=== PATIENT | male | born 1975 | race Caucasian/White ===

== ENCOUNTER 2018-07-03 10:56 | Day surgery (SDC) | payer OTHER, SELFPAY ==
[2018-07-03 11:38] VITALS: BP 130/81; PULSE 67; RESP 18; O2SAT 97; BMI 29.5
[2018-07-03 12:19] VITALS: BP 148/99; PULSE 71; RESP 18; O2SAT 98
[2018-07-03 12:20] VITALS: BP 147/89; PULSE 69; RESP 18; O2SAT 98
--- NOTE | 2018-07-03 12:26 | P.PCN_ITS ---
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 He currently has an intrathecal Dilaudid pain pump in place going at 0.15 mg/day. He is doing very well with his intrathecal pain pump. He does have an antalgic gait. Motor strength of the lower extremities is 5/5. There is no gross sensory deficit. He has no side effects currently. Overall his mari n is well controlled and he is much more functional. Seth and urine drug screen are all appropriate. We will refill his pump and reprogrammed him to a 20 mL reservoir volume. Procedure Details:: Analysis and reprogramming with refill of intrathecal pain pump informed consent was obtained and the risks and benefits of the procedure was explained to the patient. The patient was taken to the procedure room. The pump was interrogated. The area over the pump was prepped using ChloraPrep. The pump was accessed with a 22-gauge needle. Approximately 8 mL's of the i ntrathecal solution was withdrawn and discarded. The pump was then refilled with 20 mL's of intrathecal Dilaudid 2 mg per ml. The pump was interrogated and the infusion was continued at 0.15 mg/day. The patient tolerated the procedure well with no complication. Plan and Disposition:: We will follow-up with him in 2 weeks. Will reevaluate symptoms at that time.
[2018-07-03 12:34] VITALS: BP 148/99; PULSE 69; RESP 18
--- NOTE | 2018-09-07 11:51 | PC.PHONENOTE ---
called in Rx for Tramadol HCL 50mg TID with 5 refills and Gabapentin 300mg, 3 caps TID with 5 refills to [facility]
--- NOTE | 2018-11-03 09:15 | PC.NURSE ---
tizanidine 4mg bid with 2 refills called into [facility], per provider order
== END 2018-07-03 12:35 | disposition home or self-care (01) ==
LOC: SC.PAINP 10:57
PROVIDERS: PCP Family Medicine; Visit Provider Anesthesiology
DX: M51.16 Intervertebral disc disorders with radiculopathy, lumbar region (principal); M96.1 Postlaminectomy syndrome, not elsewhere classified
CPT/HCPCS: 95991

== ENCOUNTER → 2019-06-20 09:54 | Outpatient (CLI) | payer OTHER, SELFPAY ==
[2019-06-22 08:48] LABS: Covid-19 Nasal PCR Sendout UK Not Detected
== END ==
PROVIDERS: PCP Family Medicine; Visit Provider Anesthesiology
DX: Z03.818 Encounter for observation for suspected exposure to other biological agents ruled out (principal)
CPT/HCPCS: U0003

== ENCOUNTER 2019-06-22 13:35 | Day surgery (SDC) | payer OTHER, SELFPAY ==
[2019-06-22 13:48] VITALS: BP 158/102; PULSE 66; RESP 18; O2SAT 100; BMI 29.5
[2019-06-22 14:04] VITALS: BP 153/108; PULSE 61; RESP 18; O2SAT 97
[2019-06-22 14:08] VITALS: BP 145/89; PULSE 65; RESP 20; O2SAT 99
[2019-06-22 14:10] VITALS: BP 149/85; PULSE 65; RESP 20; O2SAT 99
--- NOTE | 2019-06-22 14:17 | HMH.PMPROC ---
- Procedure Date: 06/22/19 Time: 14:17 Anesthesiologist:: Kimberley Reilly APRN Complications:: None Pre-procedure Diagnosis:: Degenerative disc disease lumbar spine with lumbar radiculopathy and postlaminectomy of lumbar spine Post-procedure Diagnosis:: Same Indications for Procedure:: Patient is a pleasant 43-year-old white male who presents today for intrathecal pain pump refill and reprogram. He is doing well his Dilaudid pain pump at 0.15 mg/day he would like a slight increase in his medication. Patient's Seth #[id number] reviewed and appropriate. He is on tramadol 50 mg 1 p.o. 3 times daily along with gabapentin 800 mg 1 p.o. 3 times daily. He denies side effects to this medication. His morphine equivalent is 15. He states that it helped his pain significantly he rates his pain a 1 out of 10 today. 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 The patient was taken to the procedure room where noninvasive monitoring was placed including noninvasive blood pressure cuff and pulse oximeter. Patient's pump was interrogated. The area over the pump was cleansed with chlorhexidine as a cleansing solution. In sterile fashion the pump was accessed with a 22-gauge needle. Approximately 6 mL's were removed of the pump solution and discarded appropriately. The pump was then refilled with 20 mL's of intrathecal Dilaudid 2 mg/mL. The needle was withdrawn and a bandage was placed over the puncture site. The infusion rate was reprogrammed to 0.175 mg/day. The patient tolerated the procedure well. Plan and Disposition:: I will follow-up with the patient at his next intrathecal pain pump refill and reprogram he has been instructed to call the office if he has any issues prior to his next appointment. Dr. Hyatt has reviewed this note and agrees with this plan of care. This note was dictated using voice recognition software and may contain errors or omissions
--- NOTE | 2019-06-22 14:19 | PC.NURSE ---
Discussed elevated BP with pt, said he had a cuff at home. RN instructed pt to check BP a little later today to see if goes down and if not to contact his primary clinician. Verbalized understanding.
--- NOTE | 2019-08-18 15:48 | PC.NURSE ---
Addendum entered by Jessee Martinez RN 08/18/19 16:11: EDIT: GABAPENTIN 800MG TID , NOT GABAPENTIN 300 Original Note: GABAPENTIN 300MG, 3 CAPSULES TID, TRAMADOL 50MG TID, AND TIZANIDINE 4MG TID WITH TWO REFILLS CALLED INTO [facility] PER PROVIDER ORDER
== END 2019-06-22 14:22 | disposition home or self-care (01) ==
LOC: SC.PAINP 13:35
PROVIDERS: PCP Family Medicine; Visit Provider Clinical Nurse Specialist Family Health
DX: M51.16 Intervertebral disc disorders with radiculopathy, lumbar region (principal); M96.1 Postlaminectomy syndrome, not elsewhere classified; Z88.1 Allergy status to other antibiotic agents
CPT/HCPCS: 62370

== ENCOUNTER 2019-11-29 13:47 | Day surgery (SDC) | payer OTHER, SELFPAY ==
[2019-11-29 14:03] VITALS: BP 153/96; BP 157/112; PULSE 77; RESP 18; TEMP 36.4; O2SAT 97; BMI 30.8
[2019-11-29 14:20] VITALS: BP 177/84; PULSE 82; RESP 18
[2019-11-29 14:21] VITALS: BP 172/89; PULSE 77; RESP 18; O2SAT 98
--- NOTE | 2019-11-29 14:28 | P.PCN_ITS ---
- Procedure Date: 11/29/19 Time: 14:28 Anesthesiologist:: Kimberley Reilly APRN Complications:: None Pre-procedure Diagnosis:: Disc disease lumbar spine lumbar radiculopathy and postlaminectomy syndrome lumbar spine Post-procedure Diagnosis:: Same Indications for Procedure:: Patient is a very pleasant 43-year-old white male who presents today for intrathecal pain pump refill and reprogram. He is doing well on his Dilaudid intrathecal pain pump going at 0.175 mg/day. He denies any need for changes he denies side effects. He is on tramadol 50 mg 1 tab p.o. 3 times daily and gabap entin 800 mg 1 p.o. 3 times daily. He is morphine equivalent is currently 15. Seth and drug screens appropriate. 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 The patient was taken to the procedure room where noninvasive monitoring was placed including noninvasive blood pressure cuff and pulse oximeter. Patient's pump was interrogated. The area over the pump was cleansed with chlorhexidine as a cleansing solution. In sterile fashion the pump was accessed with a 22-gauge needle. Approximately 2.5 mL's were removed of the pump solution and discarded appropriately. The pump was then refilled with 20 mL's of Dilaudid 2 mg/mL. The needle was withdrawn and a bandage was placed over the puncture site. The infusion rate was reprogrammed to continue at 0.175 mg/day. The patient tolerated the procedure well. Plan and Disposition:: See the patient back at his next intrathecal pain pump refill and reprogram he has been instructed to call the office if he has any issues prior to his next appointment. Dr. Hyatt has reviewed this note and agrees with this plan of care. This note was dictated using voice recognition software and may contain errors or omissions
[2019-11-29 14:45] VITALS: BP 151/99; PULSE 68; RESP 18; O2SAT 97
== END 2019-11-29 14:47 | disposition home or self-care (01) ==
LOC: SC.PAINP 13:49
PROVIDERS: PCP Family Medicine; Visit Provider Clinical Nurse Specialist Family Health
DX: M51.16 Intervertebral disc disorders with radiculopathy, lumbar region (principal); M96.1 Postlaminectomy syndrome, not elsewhere classified
CPT/HCPCS: 95991

== ENCOUNTER 2020-04-07 08:32 | Day surgery (SDC) | payer OTHER, SELFPAY ==
[2020-04-07 09:00] VITALS: BP 128/88; PULSE 64; RESP 18; TEMP 36; O2SAT 100; BMI 43.9
[2020-04-07 09:23] VITALS: BP 138/85; PULSE 85; RESP 18
[2020-04-07 09:24] VITALS: BP 150/87; PULSE 68; RESP 18; O2SAT 98
--- NOTE | 2020-04-07 09:34 | HMH.PMPROC ---
- Procedure Date: 04/07/20 Time: 09:35 Anesthesiologist:: Jaden Hyatt MD Complications:: None Pre-procedure Diagnosis:: Degenerative disc disease of lumbar spine with postlaminectomy syndrome lumbar spine Post-procedure Diagnosis:: Same Indications for Procedure:: This patient is a pleasant 43-year-old white male who we are treating for low back pain with lumbar radiculopathy symptoms and postlaminectomy syndrome lumbar spine. Patient is doing well on his Dilaudid intrathecal pain pump. He is currently going at 0.175 mg/day. He does not need any changes today. We will refill his pump today. Seth and urine drug screens have been reviewed and are appropriate. He does have an antalgic gait. Motor strength of the lower extremities is 5/5. There is no gross sensory deficit. We will refill his pump today and continue him at 0.175 mg/day of intrathecal Dilaudid. Procedure Details:: Pain pump refill Informed consent was obtained and the risks and benefits of the procedure was explained to the patient. The patient was taken to the procedure room. The pump was interrogated. The area over the pump was prepped using ChloraPrep. The pump was accessed with a 22-gauge needle. Approximately 6 mL's of the intrathecal solution was withdrawn and discarded. The pump was then refilled with 20 mL's of intrathecal Dilaudid 2 mg/mL. The pump was interrogated and the infusion was continued at 0.175 mg/day. The patient tolerated the procedure well with no complication. Plan and Disposition:: We will follow-up with him at his next pump refill. If is any problems or questions he is to call us back in the pain clinic.
[2020-04-07 09:40] VITALS: BP 142/93; PULSE 61; RESP 20; O2SAT 99
--- NOTE | 2020-07-07 16:58 | PC.NURSE ---
called in rx for tizanidine 4mg TID with 2 refills to [facility] [place] per provider order.
== END 2020-04-07 09:41 | disposition home or self-care (01) ==
LOC: SC.PAINP 08:36
PROVIDERS: PCP Family Medicine; Visit Provider Anesthesiology
DX: M51.16 Intervertebral disc disorders with radiculopathy, lumbar region (principal); M96.1 Postlaminectomy syndrome, not elsewhere classified; I10 Essential (primary) hypertension; Z88.0 Allergy status to penicillin; Z90.49 Acquired absence of other specified parts of digestive tract; Z45.1 Encounter for adjustment and management of infusion pump; Z79.899 Other long term (current) drug therapy
CPT/HCPCS: 95991

== ENCOUNTER 2020-07-24 14:48 | Day surgery (SDC) | payer OTHER, SELFPAY ==
[2020-07-24 14:52] VITALS: BP 157/89; PULSE 79; RESP 18; TEMP 36.4; O2SAT 98; BMI 30.8
[2020-07-24 15:18] VITALS: BP 139/86; PULSE 77; RESP 18; O2SAT 100
[2020-07-24 15:19] VITALS: BP 137/91; PULSE 77; RESP 18; O2SAT 98
[2020-07-24 15:30] VITALS: BP 153/99; PULSE 72; RESP 20; O2SAT 98
--- NOTE | 2020-07-28 07:19 | HMH.PMPROC ---
- Procedure Date: 07/24/20 Time: 13:00 Anesthesiologist:: Kim Maciel APRN Complications:: None Pre-procedure Diagnosis:: Degenerative disc disease lumbar spine with lumbar radiculopathy symptoms, chronic back pain Post-procedure Diagnosis:: Same Indications for Procedure:: Patient is a 44-year-old white male who presents today for intrathecal pain pump refill and reprogram. He has been treated for degenerative disc disease lumbar spine with lumbar radiculopathy symptoms and postlaminectomy lumbar spine. He is currently on intrathecal therapy of Dilaudid at 0.175 mg/day and denies any side effects. His Seth and drug screens have been appropriate. His Seth #[id number] has been reviewed and is appropriate. Drug screen is appropriate. 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 The patient was taken to the procedure room where noninvasive monitoring was placed including noninvasive blood pressure cuff and pulse oximeter. Patient's pump was interrogated. The area over the pump was cleansed with chlorhexidine as a cleansing solution. In sterile fashion the pump was accessed with a 22-gauge needle. Approximately 5 mL mls of the pump solution was removed and discarded appropriately. The pump was then refilled with 20 mL's of Dilaudid 2 mg per male []. The needle was withdrawn and a bandage was placed over the puncture site. The infusion rate was reprogrammed at Dilaudid 0.175 mg/day []. The patient tolerated well with no complication. Plan and Disposition:: We will see the patient back in the clinic at his next intrathecal refill. Patient has been instructed to contact the clinic with any concerns before the next appointment. Dr. Hyatt has reviewed this note and agrees with this plan of care. This note was dictated using voice recognition software and make contain errors or omissions.
== END 2020-07-24 15:30 | disposition home or self-care (01) ==
LOC: SC.PAINP 14:51
PROVIDERS: PCP Family Medicine; Visit Provider Clinical Nurse Specialist Family Health
DX: M51.16 Intervertebral disc disorders with radiculopathy, lumbar region (principal); G89.29 Other chronic pain; Z45.1 Encounter for adjustment and management of infusion pump
CPT/HCPCS: 95991

== ENCOUNTER 2020-11-20 14:49 | Day surgery (SDC) | payer OTHER, SELFPAY ==
[2020-11-20 14:51] VITALS: BP 153/83; PULSE 85; RESP 18; TEMP 37.1; O2SAT 98; BMI 30.8
[2020-11-20 15:24] VITALS: BP 154/88; PULSE 78; RESP 18; O2SAT 96
[2020-11-20 15:26] VITALS: BP 154/88; PULSE 79; RESP 18; O2SAT 95
[2020-11-20 15:31] VITALS: BP 169/87; PULSE 71; RESP 18; TEMP 37.1; O2SAT 98
--- NOTE | 2020-11-20 15:31 | HMH.PMPROC ---
- Procedure Date: 11/20/20 Time: 15:31 Anesthesiologist:: Kim Maciel APRN Complications:: None Pre-procedure Diagnosis:: Degenerative disc disease lumbar spine with lumbar radiculopathy symptoms, chronic back pain Post-procedure Diagnosis:: Same Indications for Procedure:: Patient is a 44-year-old white male who presents today for intrathecal pain pump refill and reprogram. Patient is currently on Dilaudid at 0.175 mg/day. He denies any side effects to the medicine. He says the medication regimen is working well for him. He is also managed with oral medications of gabapentin 800 mg 1 tablet p.o. 4 times daily and tramadol 50 mg 1 tablet p.o. 4 times daily. [facility] #[id number] has been reviewed and is appropriate. Drug screen is appropriate. Rates his pain is 6 out of 10. Physical exam General: Alert and oriented x3, no acute distress, pleasant and cooperative Lungs: Respirations even and unlabored, symmetrical chest expansion Eyes: PERRL Musculoskeletal: Flexion and extension of lumbar [spine] somewhat guarded secondary to pain, [antalgic gait noted] Neurological: Speech clear, no gross sensory deficit Procedure Details:: Informed consent was obtained and the risk and benefits of the procedure were explained to the patient. The patient was taken to the procedure room where noninvasive monitoring was placed including noninvasive blood pressure cuff and pulse oximeter. Patient's pump was interrogated. The area over the pump was cleansed with chlorhexidine as a cleansing solution. In sterile fashion the pump was accessed with a 22-gauge needle. Approximately 6.5 mls of the pump solution was removed and discarded appropriately. The pump was then refilled with 20 mL's of Dilaudid 2 mg/mL. The needle was withdrawn and a bandage was placed over the puncture site. The infusion rate was reprogrammed at continued at Dilaudid at 0.175 mg/day. The patient tolerated well with no complication. Plan and Disposition:: We will refill the patient's gabapentin 800 mg 1 tablet p.o. 4 times daily, tramadol 50 mg 1 tablet p.o. 4 times daily. We will give him 2 refills on the medication so that he is able to return in 3 months for an intrathecal pump refill and medication refill. Risks and benefits of the medication have been explained in detail to the patient. The patient does understand the risks dependence on the medication when given over a prolonged period. Patient has been advised of risks of oversedation with the prescribed medication. Narcan has been offered to the paitent in the event of oversedation. Patient has been advised that a family member should also be educated regarding administration of Narcan. The patient has been advised to consult with his/her primary care provider and pharmacist regarding drug-drug interaction of medications currently prescribed. Patient has been prescribed a controlled substance after being counseled on the medication, medication safety, and possible side effects. KAJAL report has been obtained and reviewed prior to prescription and found to be appropriate. Opioid contract was reviewed and signed by the patient, and that they have agreed to all of the terms set forth by our compliance program. Patient has been instructed to contact the clinic with any concerns before the next appointment. Dr. Hyatt has reviewed this note and agrees with this plan of care. This note was dictated using voice recognition software and make contain errors or omissions.
== END 2020-11-20 15:35 | disposition home or self-care (01) ==
LOC: SC.PAINP 14:49
PROVIDERS: PCP Family Medicine; Visit Provider Clinical Nurse Specialist Family Health
DX: M51.16 Intervertebral disc disorders with radiculopathy, lumbar region (principal); G89.29 Other chronic pain
CPT/HCPCS: 95991

== ENCOUNTER 2021-04-02 13:06 | Day surgery (SDC) | payer OTHER, SELFPAY ==
[2021-04-02 13:15] VITALS: BP 160/90; PULSE 65; RESP 20; TEMP 37.1; BMI 30.8
[2021-04-02 13:16] VITALS: BP 154/92; PULSE 64; RESP 18; O2SAT 94
[2021-04-02 13:41] VITALS: BP 159/95; PULSE 65; RESP 18; O2SAT 94
[2021-04-02 13:55] VITALS: BP 150/95; PULSE 64; RESP 20; O2SAT 97
--- NOTE | 2021-04-02 14:32 | P.PCN_ITS ---
- Procedure Date: 04/02/21 Time: 14:32 Anesthesiologist:: Ne South MD Complications:: None Pre-procedure Diagnosis:: Degenerative disease lumbar spine with lumbar radiculopathy Post-procedure Diagnosis:: Same Indications for Procedure:: Patient is a very pleasant 45-year-old white male who presents today for intrathecal refill and reprogram. He is currently on Dilaudid 2 mg/mL on constant flow and PTC at 0.175 mg/day. He states that his current pain symptoms are adequately managed with his current pump dose settings. The plan for today is for the patient to undergo a pump refill and reprogram today without any changes to his pump dose settings. Procedure Details:: Informed consent was obtained and the risks and benefits of the procedure was ex plained to the patient. The patient was taken to the procedure room. The pump was interrogated. The area over the pump was prepped using ChloraPrep. The pump was accessed with a 22-gauge needle. Approximately 5.5 mL's of the intrathecal solution was withdrawn and discarded. The pump was then refilled with 20 mL's of intrathecal [intrathecal Dilaudid 2 g/mL]. The pump was interrogated and the infusion was continued at 0.175 mg per day]. [ PTC was unchanged at 0.017 mg 6 times a day with a 4 hour lockout]. The patient tolerated the procedure well with no complications. Next refill date is on [July 30, 2021]. Plan and Disposition:: We will follow-up with this patient on or before the next pump refill appointment make any pump adjustments at that time if indicated. I discussed with the patient the patient contact her clinic sooner should any issues arise.
[2021-04-02 17:33] LABS: Amphetamine/Metha Screen,Urine Negative ng/ml (<1000)
[2021-04-02 17:34] LABS: Barbiturates Screen,Urine Negative ng/ml (<200); Benzodiazepines Screen,Urine Negative ng/ml (<200)
[2021-04-02 17:35] LABS: Cannabinoid Screen,Urine Negative ng/ml (<50)
[2021-04-02 17:36] LABS: Cocaine Screen,Urine Negative ng/ml (<300); Methadone Screen,Urine Negative ng/ml (<300)
[2021-04-02 17:37] LABS: Opiate Screen,Urine Positive ng/ml (<300)
[2021-04-02 17:38] LABS: Phencyclidine Screen,Urine Negative ng/ml (<25)
[2021-04-02 20:33] LABS: Amphetamine/Metha Screen,Urine Negative ng/ml (<1000)
[2021-04-02 20:34] LABS: Barbiturates Screen,Urine Negative ng/ml (<200); Benzodiazepines Screen,Urine Negative ng/ml (<200)
[2021-04-02 20:35] LABS: Cannabinoid Screen,Urine Negative ng/ml (<50)
[2021-04-02 20:36] LABS: Cocaine Screen,Urine Negative ng/ml (<300); Opiate Screen,Urine Negative ng/ml (<300)
[2021-04-02 20:37] LABS: Methadone Screen,Urine Negative ng/ml (<300); Phencyclidine Screen,Urine Negative ng/ml (<25)
[2021-04-10 09:42] LABS: Codeine Negative (Cutoff=100); Hydrocodone Negative (Cutoff=100); Hydromorphone Negative (Cutoff=100); Morphine Positive (.); Opiates Positive (.)
--- NOTE | 2021-04-11 13:53 | PC.NURSE ---
called in Rx for Tizanidine 4mg PO BID with 2 refills to [facility] per MD order.
[2021-04-20 09:02] LABS: Codeine Negative (Cutoff=100); Hydrocodone Negative (Cutoff=100); Hydromorphone Positive (.); Morphine Negative (Cutoff=100); Opiates Positive (.)
== END 2021-04-02 13:55 | disposition home or self-care (01) ==
LOC: SC.PAINP 13:09
PROVIDERS: PCP Family Medicine; Visit Provider Anesthesiology Pain Medicine
DX: M51.16 Intervertebral disc disorders with radiculopathy, lumbar region (principal); Z45.1 Encounter for adjustment and management of infusion pump
CPT/HCPCS: 80305; 80361; 80365; 95991; G0480

== ENCOUNTER 2021-08-10 12:56 | Day surgery (SDC) | payer OTHER, SELFPAY ==
[2021-08-10 13:42] VITALS: BP 145/77; PULSE 67; RESP 18; TEMP 37; O2SAT 96; BMI 32.1
[2021-08-10 14:03] VITALS: BP 140/93; PULSE 65; RESP 18
[2021-08-10 14:04] VITALS: BP 141/89; PULSE 66; RESP 18; O2SAT 98
--- NOTE | 2021-08-10 14:09 | HMH.PMPROC ---
- Procedure Date: 08/10/21 Time: 14:09 Anesthesiologist:: Jaden Hyatt MD Complications:: None Pre-procedure Diagnosis:: Degenerative disc disease of lumbar spine with lumbar radiculopathy symptoms Post-procedure Diagnosis:: Same Indications for Procedure:: This patient is a pleasant 45-year-old white male who we are treating for low back pain with lumbar radiculopathy symptoms. He is doing very well with his intrathecal Dilaudid pain pump. He continues at 0.175 mg/day. Seth and drug screen are all appropriate. He does have an antalgic gait. Motor strength of the lower extremities is 5/5. There is no gross sensory deficit. Procedure Details:: Informed consent was obtained and the risks and benefits of the procedure was explained to the patient. The patient was taken to the procedure room. The pump was interrogated. The area over the pump was prepped using ChloraPrep. The pump was accessed with a 22-gauge needle. Approximately 6 mL's of the intrathecal solution was withdrawn and discarded. The pump was then refilled with 20 mL's of intrathecal Dilaudid 2 mg/mL. The pump was interrogated and the infusion was continued at 0.175 mg/day. The patient tolerated the procedure well with no complication. Plan and Disposition:: Patient is doing very well with his intrathecal pain pump. We will follow-up with him in 3 months at his next pump refill. If he has any problems or questions he is to call us back in the pain clinic.
[2021-08-10 14:13] VITALS: BP 141/88; PULSE 64; RESP 18; O2SAT 97
== END 2021-08-10 14:13 | disposition home or self-care (01) ==
LOC: SC.PAINP 12:56
PROVIDERS: PCP Family Medicine; Visit Provider Anesthesiology
DX: M51.16 Intervertebral disc disorders with radiculopathy, lumbar region (principal)
CPT/HCPCS: 95991

== ENCOUNTER 2021-12-11 12:50 | Day surgery (SDC) | payer OTHER, SELFPAY ==
[2021-12-11 13:01] VITALS: BP 160/95; PULSE 70; RESP 18; TEMP 36.9; O2SAT 97; BMI 32.1
[2021-12-11 13:02] VITALS: BP 185/100; PULSE 70; RESP 18; O2SAT 98
--- NOTE | 2021-12-11 13:09 | EXP.PAIN.PRO ---
Procedure Date: 12/11/21 Time: 13:09 Anesthesiologist:: Fadi Aragon CRNA Complications:: None Pre-procedure Diagnosis:: Degenerative disc disease of lumbar spine with lumbar radiculopathy symptoms Post-procedure Diagnosis:: Same Indications for Procedure:: Patient is a pleasant 45-year-old male who presents today for intrathecal pain pump refill and reprogram. We are currently treating the patient for degenerative disc disease of lumbar spine with lumbar radiculopathy symptoms. Today he rates his pain a 0 out of 10. Patient is currently managed with Dilaudid 2 mg/mL with a daily dose of 0.1750 mg/day. Patient denies any side effects from this medication. He does state recently within the last few weeks he has noticed increased sweating while he is at work. Patient states this does not occur when he is at home and he was curious whether or not if this could be caused from his pump related medication. Patient does states this medication actively helps manage his pain symptoms. General: Alert and oriented x3, no acute distress, pleasant and cooperative Lungs: Respiration even unlabored, symmetrical chest expansion Eyes: PERRL Musculoskeletal: Flexion and extension of lumbar spine somewhat guarded secondary to pain, antalgic gait noted Neurological: Speech clear, no gross sensory deficit Procedure Details:: Informed consent was obtained and risk and benefits of the procedure were explained to the patient. The patient was taken to the procedure room and placed in a sitting position. Noninvasive monitoring was placed on the patient including a noninvasive blood pressure cuff and pulse oximeter. The pump was interrogated. The the area over the pump was cleansed with chlorhexidine as a cleansing solution. The pump was accessed with a 22-gauge needle. Approximately 7 mL of intrathecal solution was expected with 6.2 mL of solution withdrawn and discarded appropriately. The pump was then refilled with 20 mL of intrathecal Dilaudid 2 mg/mL. The needle was withdrawn and a sterile bandage was applied. The pump was then reinterrogated and the infusion continued at Dilaudid 0.175 mg/day. The patient tolerated the procedure well with no complications. Plan and Disposition:: Patient was instructed to continue to monitor the sweating following this pump refill. we will follow-up with him at his next intrathecal pump refill and reprogramming date. Patient has been counseled to contact the office with any questions or concerns prior to the next appointment date. Dr. Hyatt has read this note and agrees with this plan of care. This note was dictated with voice recognition software and may contain errors or omissions.
[2021-12-11 13:12] VITALS: BP 157/93; PULSE 71; RESP 18; O2SAT 97
== END 2021-12-11 13:12 | disposition home or self-care (01) ==
PROVIDERS: PCP Family Medicine; Visit Provider Nurse Anesthetist, Certified Registered
DX: M51.16 Intervertebral disc disorders with radiculopathy, lumbar region (principal)
CPT/HCPCS: 95991

== ENCOUNTER 2022-04-16 13:03 | Day surgery (SDC) | payer OTHER, SELFPAY ==
[2022-04-16 13:36] VITALS: BP 154/92; PULSE 71; RESP 18; TEMP 37.1; O2SAT 96; BMI 32.1
[2022-04-16 13:43] VITALS: BP 186/99; PULSE 70; RESP 18; O2SAT 97
[2022-04-16 13:45] VITALS: BP 186/99; PULSE 70; RESP 18; O2SAT 97
[2022-04-16 13:53] VITALS: BP 176/100; PULSE 69; RESP 18; O2SAT 96
--- NOTE | 2022-04-16 13:54 | EXP.PAIN.PRO ---
Procedure Date: 04/16/22 Time: 13:50 Anesthesiologist:: Fadi Aragon CRNA Complications:: None Pre-procedure Diagnosis:: Degenerative disc disease lumbar spine multilevels. Lumbar radiculopathy Post-procedure Diagnosis:: Same. Indications for Procedure:: Patient is a very pleasant 46-year-old male that comes our clinic today for intrathecal pain pump interrogation and refill. He is currently being managed with Dilaudid 2 mg/mL at 1.75 mg/day. He reports significant relief in terms of his overall pain. He is not requesting any increase in rate today. He does not report any side effects regarding the intrathecal pain pump management. Procedure Details:: Details of the procedure explained to the patient. The patient taken to procedure room placed in the sitting position. The area over the pump was cleansed using chlorhexidine as a cleansing solution. The pump was interrogated. The pump was accessed with ease using a 22-gauge inch and half needle. 6 mL of solution was withdrawn and discarded appropriately. The pump was then filled incrementally with 20 cc of Dilaudid 2 mg/mL. The rate will continue at 0.175 mg/day. Plan and Disposition:: Patient was discharged without incident.
== END 2022-04-16 13:53 | disposition home or self-care (01) ==
PROVIDERS: PCP Family Medicine; Visit Provider Nurse Anesthetist, Certified Registered
DX: Z45.1 Encounter for adjustment and management of infusion pump (principal); M51.16 Intervertebral disc disorders with radiculopathy, lumbar region
CPT/HCPCS: 95991

== ENCOUNTER 2022-08-06 12:23 | Day surgery (SDC) | payer OTHER, SELFPAY ==
[2022-08-06 12:51] VITALS: BP 138/96; PULSE 62; RESP 18; TEMP 36.7; O2SAT 97; BMI 33.3
--- NOTE | 2022-08-06 12:55 | EXP.PAIN.PRO ---
Procedure Date: 08/06/22 Time: 12:50 Anesthesiologist:: Fadi Aragon CRNA Complications:: None Pre-procedure Diagnosis:: Degenerative disc disease lumbar spine multilevels. Lumbar radiculopathy Post-procedure Diagnosis:: Same. Indications for Procedure:: Patient is a very pleasant 38-year-old male that comes our clinic today for intrathecal pain pump irrigation refill. He is currently being managed with Dilaudid 2 mg/mL at 1.75 mg/day. He reports no complications or side effects from his current management. Patient reports having some increased low back pain in the evenings after returning home from work. 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 He is not interested in increasing the pump rate today. However, if he continues in this manner he will call the office for an increase. Procedure Details:: Details of the procedure explained to the patient. The patient taken to procedure room placed in the sitting position. The area over the pump was cleaned using chlorhexidine as a cleansing solution. The pump was interrogated. The pump was accessed with ease using an inch and half 22-gauge needle. 6 mL of solution was withdrawn and discarded appropriately. The pump was then filled with 20 cc incrementally of Dilaudid 2 mg/mL. The rate will continue at 1.75 mg today. Plan and Disposition:: Patient was discharged without incident.
[2022-08-06 12:56] VITALS: BP 150/103; PULSE 66; RESP 18; O2SAT 97
[2022-08-06 12:57] VITALS: BP 150/103; PULSE 66; RESP 18; O2SAT 97
[2022-08-06 13:00] VITALS: BP 121/83; PULSE 60; RESP 18; O2SAT 97
== END 2022-08-06 13:00 | disposition home or self-care (01) ==
PROVIDERS: PCP Family Medicine; Visit Provider Nurse Anesthetist, Certified Registered
DX: M51.16 Intervertebral disc disorders with radiculopathy, lumbar region (principal)
CPT/HCPCS: 95991

== ENCOUNTER 2022-11-12 08:02 | Day surgery (SDC) | payer OTHER, SELFPAY ==
[2022-11-12 08:20] VITALS: BP 178/103; PULSE 77; RESP 16; TEMP 36.3; O2SAT 99; BMI 33.3
--- NOTE | 2022-11-12 08:52 | P.PCN_ITS ---
Procedure Date: 11/12/22 Time: 08:30 Anesthesiologist:: Fadi Aragon CRNA Complications:: None Pre-procedure Diagnosis:: Degenerative disc lumbar spinal polyps. Lumbar radiculopathy. Post-procedure Diagnosis:: Same. Indications for Procedure:: Patient is a very pleasant 46-year-old male that comes our clinic today for intrathecal pain pump interrogation and refill. Patient currently being managed with Dilaudid 2 mg/mL 1.75 mg/day. Patient states he is doing very well with his current settings. He does not report side effects or complications. Patient states medication seems to weaken as he gets closer to refill date. He continues using his PTM when needed. Procedure Details:: Details of the procedure explained to the patient. The patient taken to procedure room placed in the sitting position. The area over the pump is tawanna ansed using chlorhexidine as a cleansing solution. The pump was interrogated. The pump was accessed with ease using a 22-gauge inch and half needle. 9 mL of solution was withdrawn discarded appropriate. The pump was then filled incrementally with 20 ml of a solution containing hydromorphone 12 mcg/mL. Patient tolerated procedure without difficulty. No complications Plan and Disposition:: Patient was discharged without incident.
[2022-11-12 08:57] VITALS: BP 178/105; PULSE 77; RESP 16; O2SAT 99
== END 2022-11-12 08:57 | disposition home or self-care (01) ==
PROVIDERS: PCP Family Medicine; Visit Provider Nurse Anesthetist, Certified Registered
DX: M51.16 Intervertebral disc disorders with radiculopathy, lumbar region (principal); Z97.8 Presence of other specified devices
CPT/HCPCS: 95991

== ENCOUNTER → 2023-01-29 09:15 | Outpatient (POV) | payer OTHER, SELFPAY ==
--- NOTE | 2023-01-29 09:36 | EXP.PAIN.PRO ---
Procedure Date: 01/29/23 Time: 09:36 Anesthesiologist:: Danielle Yoo APRN Complications:: None Pre-procedure Diagnosis:: Degenerative disc disease of lumbar spine with lumbar radiculopathy symptoms chronic pain syndrome Post-procedure Diagnosis:: Same Indications for Procedure:: Patient is a pleasant 47-year-old male who presents today for intrathecal adjustment and reprogram. We are currently treating the patient for degenerative disc disease of lumbar spine with lumbar radiculopathy symptoms. Today he rates his pain a 7 out of 10. Patient denies any new trauma or injury. He states he continues to have low back and leg pain. Patient does describe this as an aching, throbbing with numbness and tingling into his bilateral lower extremities. Patient is currently managed with Dilaudid 2 mg/mL with a daily dose of 0.175 mg/day. Patient denies any side effects from this medication. 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 Patient is also prescribed gabapentin, tramadol and tizanidine. His Seth has been reviewed and is appropriate. Physical Exam: General: Alert and oriented x3, no acute distress, pleasant and cooperative Lungs: Respirations even and unlabored, symmetrical chest expansion Eyes: PERRL Musculoskeletal: Flexion and extension of lumbar [spine] somewhat guarded secondary to pain, [antalgic gait noted] Neurological: Speech clear, no gross sensory deficit Procedure Details:: Informed consent was obtained and the risk and benefits of the procedure were explained to the patient. Patient was taken to the procedure room where noninvasive monitoring was placed including noninvasive blood pressure cuff and pulse oximeter. Patient's pump was interrogated and was reprogrammed to Dilaudid 0.1925mg/day. The patient tolerated the procedure well with no complications. Plan and Disposition:: Patient tolerated his intrathecal increase with no complications and was discharged neurologically intact. I will order the patient compounded cream. We will see the patient back in the clinic at the next intrathecal refill. Patient has been instructed to contact the clinic with any concerns before the next appointment. Dr. Hyatt has reviewed this note and agrees with this plan of care. This note was dictated using voice recognition software and make contain errors or omissions. -- It Is medically necessary for this patient to continue to have their intrathecal pump refilled at regular intervals. This patient had an intrathecal pain pump implanted after meeting criteria of chronic intractable pain for greater than 3 months and failing conservative treatments. Patient has committed and been compliant to the treatment plan and all planned follow up care. Since implantation of the intrathecal pain pump, the patient has had decreased pain and been more functional. Oral medications have been reduced including intake of oral opioids. Patient continues to do well with intrathecal therapy with decrease in pain symptoms and increase in functional status. Stopping intrathecal medications can lead to life threatening withdrawal, seizures, cardiac arrest, severe pain, and possible . Pumps that are not refilled at regular intervals can be damages and cause and need for replacement. We continually titrate dose and concentration to optimize pain relief and function. We are limited in concentration for certain drugs to safely deliver medications through the pump and stay within the recommendations from the Polyanalgesic Consensus Committee Guidelines. Depending on dose and concentration these pumps may need to be refilled sooner than 3 months as we titrate.
[2023-01-29 11:02] VITALS: BP 194/110; PULSE 65; RESP 20; O2SAT 97; BMI 32.1
== END ==
PROVIDERS: PCP Family Medicine; Visit Provider Nurse Practitioner Family
DX: M51.16 Intervertebral disc disorders with radiculopathy, lumbar region (principal); G89.4 Chronic pain syndrome; Z97.8 Presence of other specified devices; Z45.1 Encounter for adjustment and management of infusion pump
CPT/HCPCS: 62368; 99213; G0463

== ENCOUNTER 2023-02-18 08:05 | Day surgery (SDC) | payer BC, SELFPAY ==
[2023-02-18 08:14] VITALS: BMI 29.5
[2023-02-18 08:30] VITALS: BP 185/98; PULSE 72; RESP 18; O2SAT 98
[2023-02-18 08:32] VITALS: BP 185/98; PULSE 84; RESP 18; O2SAT 98
[2023-02-18 08:47] VITALS: BP 192/108; PULSE 72; RESP 18; O2SAT 95
--- NOTE | 2023-02-18 08:58 | EXP.PAIN.PRO ---
Procedure Date: 02/18/23 Time: 08:25 Anesthesiologist:: Fadi Aragon CRNA Complications:: None Pre-procedure Diagnosis:: Degenerative disc lumbar spine multilevels. Lumbar radiculopathy. Lumbar postlaminectomy syndrome. Chronic pain syndrome. CRPS type I lower limb. Post-procedure Diagnosis:: Same. Indications for Procedure:: Patient is a very pleasant 47-year-old male that comes our clinic today for intrathecal pain pump interrogation refill. He is currently being managed with Dilaudid 2 mg/mL at a rate of 0.1925 mg/day. Patient complaining of pain in his feet that he describes as sharp and stabbing. Also reports some tingling sensation in his hands at times. However, his main complaint is lower extremity pain. Patient has a flow [place] intrathecal pain pump that was implanted in 2015. We discussed the details of the pump and that it could be coming close to end-of-life? This would affect the efficiency of the pump. We discussed turning the pump rate up today by 20%. He will call our office on Friday and give us a report as to how he is feeling. Procedure Details:: Details of the procedure explained to the patient. The patient taken to procedure room placed in sitting position. The area of the pump is cleansed using chlorhexidine's cleansing solution. The pump was interrogated. The pump was accessed with ease using a 22-gauge inch and half needle. 8.4 mL of solution was withdrawn discarded appropriate. The pump was then filled with 20 cc of solution containing Dilaudid 2 mg/mL. Rate will be increased to 0.2310 mg/day. Patient tolerated procedure without difficulty. No complications. Plan and Disposition:: Patient will give us a call Friday, February 24, 2023 and give report as to how he is feeling with the increase.
== END 2023-02-18 08:47 | disposition home or self-care (01) ==
LOC: SC.PAINP 08:06
PROVIDERS: PCP Family Medicine; Visit Provider Nurse Anesthetist, Certified Registered
DX: M51.16 Intervertebral disc disorders with radiculopathy, lumbar region (principal); M96.1 Postlaminectomy syndrome, not elsewhere classified; G89.4 Chronic pain syndrome; G90.529 Complex regional pain syndrome I of unspecified lower limb; Z97.8 Presence of other specified devices; Z45.1 Encounter for adjustment and management of infusion pump
CPT/HCPCS: 95991

== ENCOUNTER 2023-04-15 08:54 | Outpatient (CLI) | payer BC, SELFPAY ==
--- NOTE | 2023-04-15 09:30 | MR_ITS ---
FINAL REPORT CLINICAL HISTORY: LEFT KNEE PAIN. NO INJURY OR TRAUMA. KNEE INSTABILITY. COMPARISON: None FINDINGS: Multiplanar MR imaging of the left knee was performed without contrast. There is a probable tear of the posterior horn of the medial meniscus. The lateral meniscus is intact. The anterior and posterior cruciate ligaments are intact. The medial collateral ligament and lateral ligamentous complex are intact. There is proximal and distal patellar tendinitis with intrasubstance tears. There is a fluid collection in an adjacent to the patellar tendon which measures up to 30 mm in vertical height. This may represent a ganglion or other type of cyst. There is also a 16mm prepatellar fluid collection, that may represent a prepatellar bursitis. There is no evidence of fracture. No focal abnormality is identified of the articular cartilage. A moderate joint effusion is seen. The musculature is intact. No soft tissue mass or cyst is identified. IMPRESSION: Probable tear posterior horn medial meniscus. Proximal and distal patellar tendinitis with intrasubstance tears, and fluid collections as described above. Moderate sized joint effusion. Reviewed, Interpreted and Dictated by Manav Solo III, MD Transcribed by Shruthi Small Authenticated and [facility]
== END 2023-04-15 23:59 ==
LOC: RAD 08:56
PROVIDERS: PCP Family Medicine; Visit Provider Orthopaedic Surgery Adult Reconstructive Orthopaedic Surgery
DX: M25.562 Pain in left knee (principal); M25.462 Effusion, left knee
CPT/HCPCS: 73721

== ENCOUNTER 2023-04-15 09:02 | Day surgery (SDC) | payer BC, SELFPAY ==
[2023-04-15 09:15] VITALS: BP 168/107; PULSE 68; RESP 16; O2SAT 98; BMI 29.5
[2023-04-15 11:15] VITALS: BP 171/101; PULSE 70; RESP 18; O2SAT 98
[2023-04-15 11:18] VITALS: BP 170/89; PULSE 88; RESP 18; O2SAT 97
[2023-04-15 11:25] VITALS: BP 170/89; PULSE 88; RESP 18; O2SAT 98
--- NOTE | 2023-04-15 12:51 | P.PCN_ITS ---
Procedure Date: 04/15/23 Time: 11:00 Anesthesiologist:: Fadi Aragon CRNA Complications:: None Pre-procedure Diagnosis:: Degenerative disc lumbar spine multilevels. Lumbar radiculopathy. Lumbar postlaminectomy syndrome. Chronic pain syndrome. CRPS type I lower limb. Post-procedure Diagnosis:: Same. Indications for Procedure:: Patient is a pleasant 47-year-old male comes our clinic today for intrathecal pain pump emptying for MRI purposes. We will replace the medication into the in trathecal pain pump following the MRI. Patient complaining of low back pain at times. However his main complaint is feet and hand neuropathy type symptoms following a full days of work after arriving at home. He is requesting increase. I think this is reasonable. His new rate will be 0.2772 mg today. Procedure Details:: Details of the procedure explained the patient. The patient taken procedure room placed in sitting position. The area of the pump is cleansed using chlorhexidine's cleansing solution. The pump was interrogated. The pump was accessed with ease using a 22-gauge inch half needle. 11 mL solution was withdrawn and securely stored. Patient returned from MRI. The area of the pump was cleaned using chlorhexidine's cleansing solution. The pump was accessed with ease using a inch and half 22-gauge needle. 11 mL of solution containing Dilaudid 2 mg/mL was replaced into the pump. Patient tolerated procedure without difficulty. There are no complications. Pump will be increased by 20%. Patient's new intrathecal rate will be 0.2772 mg/day. Plan and Disposition:: Patient was discharged without incident.
== END 2023-04-15 11:15 | disposition home or self-care (01) ==
PROVIDERS: PCP Family Medicine; Visit Provider Nurse Anesthetist, Certified Registered
DX: M51.16 Intervertebral disc disorders with radiculopathy, lumbar region (principal); M96.1 Postlaminectomy syndrome, not elsewhere classified; G89.4 Chronic pain syndrome; G90.529 Complex regional pain syndrome I of unspecified lower limb; Z97.8 Presence of other specified devices; Z45.1 Encounter for adjustment and management of infusion pump
CPT/HCPCS: 95991

== ENCOUNTER 2023-05-20 08:06 | Day surgery (SDC) | payer BC, SELFPAY ==
[2023-05-20 08:27] VITALS: BP 162/96; PULSE 67; RESP 18; TEMP 36.8; O2SAT 98; BMI 29.5
[2023-05-20 08:47] VITALS: BP 190/89; PULSE 61; RESP 18; O2SAT 98
[2023-05-20 08:48] VITALS: BP 190/82; PULSE 66; RESP 18; O2SAT 97
--- NOTE | 2023-05-20 08:53 | EXP.PAIN.PRO ---
Procedure Date: 05/20/23 Time: 08:35 Anesthesiologist:: Fadi Aragon CRNA Complications:: None Pre-procedure Diagnosis:: Degenerative disc lumbar spine multilevels. Lumbar radiculopathy. Lumbar postlaminectomy syndrome. CRPS type I lower limb. Post-procedure Diagnosis:: Same. Indications for Procedure:: Patient is a very pleasant 47-year-old male comes our clinic today for intrathecal pain pump interrogation refill. Patient is currently being managed with hydromorphone 2 mg/mL. His current rate is 0.2772 mg/day. He is doing very well with his current settings. He does not request any changes. He does not report any side effects or complications in regards to his intrathecal pain pump management. Procedure Details:: Details of the procedure explained to the patient. The patient taken procedure room placed in the sitting position. The area over the pain pump was cleansed using chlorhexidine as a cleansing solution. The pump was interrogated. The pump was accessed with ease using a 22-gauge inch and half needle. 8 mL of solution was withdrawn discarded appropriate. The pump was then filled with 20 mL of solution containing hydromorphone 2 mg/mL. The rate will continue at 0.2772 mg/day. Patient tolerated procedure without difficulty. No complications. Plan and Disposition:: Patient was discharged without incident.
[2023-05-20 08:57] VITALS: BP 178/100; PULSE 62; RESP 18; O2SAT 98
[2023-05-20 09:40] LABS: Amphetamine/Metha Screen,Urine Negative ng/ml (<1000)
[2023-05-20 09:41] LABS: Barbiturates Screen,Urine Negative ng/ml (<200)
[2023-05-20 09:42] LABS: Benzodiazepines Screen,Urine Negative ng/ml (<200); Cannabinoid Screen,Urine Negative ng/ml (<50)
[2023-05-20 09:43] LABS: Cocaine Screen,Urine Negative ng/ml (<300); Methadone Screen,Urine Negative ng/ml (<300)
[2023-05-20 09:44] LABS: Opiate Screen,Urine Negative ng/ml (<300)
[2023-05-20 09:45] LABS: Phencyclidine Screen,Urine Negative ng/ml (<25)
[2023-05-23 13:37] LABS: Opiates Negative (Cutoff=100)
== END 2023-05-20 08:57 | disposition home or self-care (01) ==
PROVIDERS: Anesthesiology; PCP Family Medicine; Visit Provider Nurse Anesthetist, Certified Registered
DX: M51.16 Intervertebral disc disorders with radiculopathy, lumbar region (principal); M96.1 Postlaminectomy syndrome, not elsewhere classified; G90.529 Complex regional pain syndrome I of unspecified lower limb; Z97.8 Presence of other specified devices; Z45.1 Encounter for adjustment and management of infusion pump
CPT/HCPCS: 80307; 80361; 80365; 95991; G0480

== ENCOUNTER 2023-08-19 08:01 | Day surgery (SDC) | payer BC, SELFPAY ==
[2023-08-19 08:23] VITALS: BP 158/93; PULSE 78; RESP 18; TEMP 36.6; O2SAT 96; BMI 30.8
[2023-08-19 08:32] VITALS: BP 168/99; PULSE 78; RESP 18; O2SAT 95
[2023-08-19 08:33] VITALS: BP 168/99; PULSE 78; RESP 18; O2SAT 95
--- NOTE | 2023-08-19 08:38 | EXP.PAIN.PRO ---
Procedure Date: 08/19/23 Time: 08:20 Anesthesiologist:: Fadi Aragon CRNA Complications:: None Pre-procedure Diagnosis:: Degenerative disc lumbar spine multilevels. Lumbar radiculopathy. Lumbar postlaminectomy syndrome. CRPS type I lower limb. Post-procedure Diagnosis:: Same. Indications for Procedure:: a very pleasant 47-year-old male comes our clinic today for intrathecal pain pump interrogation and refill. He is currently being managed with hydromorphone 2 mg/mL. His current rate is 0.2772 mg/day. He is doing very well with his current settings. He is not requesting any changes. He does not report any side effects or complications. Procedure Details:: Details of the procedure explained to the patient. The patient taken the procedure room placed in sitting position. The area over the pumps cleansed using chlorhexidine's cleansing solution. The pump was interrogated. The pump was accessed with ease using a 22-gauge inch and half needle. 6 mL of solution was withdrawn discarded appropriate. The pump was then filled with 20 cc of a solution containing morphine sulfate 2 mg/mL. The rate will continue at 0.2772 mg/day. Patient tolerated procedure without difficulty. There are no complications. Plan and Disposition:: Patient was discharged without incident.
[2023-08-19 08:40] VITALS: BP 166/100; PULSE 80; RESP 18; O2SAT 97
== END 2023-08-19 08:40 | disposition home or self-care (01) ==
PROVIDERS: PCP Family Medicine; Visit Provider Nurse Anesthetist, Certified Registered
DX: M51.36 Other intervertebral disc degeneration, lumbar region (principal); Z79.891 Long term (current) use of opiate analgesic; M54.16 Radiculopathy, lumbar region; M96.1 Postlaminectomy syndrome, not elsewhere classified
CPT/HCPCS: 95991

== ENCOUNTER 2023-11-11 08:00 | Day surgery (SDC) | payer BC, SELFPAY ==
[2023-11-11 08:24] VITALS: BP 158/92; PULSE 78; RESP 16; TEMP 36.6; O2SAT 96; BMI 29.5
--- NOTE | 2023-11-11 08:28 | EXP.PAIN.PRO ---
Procedure Anesthesiologist:: Fadi Aragon CRNA Complications:: None Procedure Details:: Procedure Details: Left shoulder intra-articular injection Informed consent was obtained risk and benefits of the procedure were explained to the patient. Patient was taken to the procedure room. The Left shoulder was prepped using ChloraPrep. A 25-gauge needle was used posteriorly to inject 10 mL bupivacaine 0.25% and Depo-Medrol 40 mg. Patient tolerated procedure well with no complications.
[2023-11-11 08:30] VITALS: BP 154/98; PULSE 73; RESP 18; O2SAT 97
[2023-11-11 08:31] VITALS: BP 154/98; PULSE 73; RESP 18; O2SAT 97
[2023-11-11 08:46] VITALS: BP 169/99; PULSE 77; RESP 18; O2SAT 96
--- NOTE | 2023-11-11 08:48 | P.PCN_ITS ---
Procedure Date: 11/11/23 Time: 08:15 Anesthesiologist:: Fadi Aragon CRNA Complications:: None Pre-procedure Diagnosis:: Degenerative disc lumbar spine multilevels. Lumbar radiculopathy. Lumbar postlaminectomy syndrome. CRPS type I left lower limb. Post-procedure Diagnosis:: Same. Indications for Procedure:: Patient is a very pleasant 47-year-old male who comes our clinic today for intrathecal pain pump interrogation and refill. Patient currently being managed with Dilaudid 2 mg/mL at a rate of 0.2772 mg/day. Patient doing very well with his current settings. He is not reporting side effects or complications. He is not requesting any changes. Patient is awake alert [place] x 3. In no acute distress. Flexion-extension lumbar spine slightly guarded secondary to pain. Deep tendon reflexes upper lower extremities normal. Motor strength upper and lower extremities normal. There is no gross sensory deficit. Gait is normal. Procedure Details:: Details of the procedure explained to the patient. The patient taken the [facility] room placed in sitting position. The area over the pump was cleansed using chlorhexidine as a cleansing solution. The pump was interrogated. The pump was accessed with ease using a 22-gauge inch and half needle. 5 mL of solution was withdrawn discarded appropriate. The pump was then filled 20 cc of solution containing Dilaudid 2 mg/mL. No change in rate. Patient tolerated procedure without difficulty. There are no complications. Plan and Disposition:: Patient was discharged without incident.
== END 2023-11-11 08:46 | disposition home or self-care (01) ==
LOC: SC.PAINP 08:01
PROVIDERS: PCP Family Medicine; Visit Provider Nurse Anesthetist, Certified Registered
DX: M51.16 Intervertebral disc disorders with radiculopathy, lumbar region (principal); M96.1 Postlaminectomy syndrome, not elsewhere classified; G90.522 Complex regional pain syndrome I of left lower limb; Z79.891 Long term (current) use of opiate analgesic
CPT/HCPCS: 95991

== ENCOUNTER → 2023-12-09 08:12 | Day surgery (SDC) | payer BC, SELFPAY ==
[2023-12-09 08:42] VITALS: BP 180/99; PULSE 65; RESP 16; TEMP 36.6; O2SAT 98; BMI 29.5
--- NOTE | 2023-12-09 09:01 | MR_ITS ---
PROCEDURE INFORMATION: Exam: MR Right Lower Extremity Joint Without Contrast, Knee Exam date and time: 12/09/2023 9:05 AM Age: 47 years old Clinical indication: Pain; Knee; Right; Additional info: R knee pain, unable to bend knee. Pain inferior to patella TECHNIQUE: Imaging protocol: Magnetic resonance imaging of the right lower extremity joint without contrast. Exam focused on the knee. COMPARISON: No relevant prior studies available. FINDINGS: Bones/joints: There is a small patellofemoral joint effusion. No visualized acute marrow edema or dislocation of the knee. Tricompartment degenerative changes are identified, with mild spurring in the medial compartment and lateral compartment, with minimal spurring of the patella. Bursae: A small amount of fluid is seen within the deep infrapatellar bursa. No significant Ardon cyst is identified. Minimal fluid is identified anterior to the inferior aspect of the patella, consistent with minimal prepatellar bursitis. Mild adjacent soft tissue edema is visualized. Medial meniscus: Myxoid degeneration of the medial meniscus. There is a subtle tear of the posterior horn of the medial meniscus extending to the inferior articulating surface. This is visualized on series 9, image 56. A subtle tear is also identified of the body of the medial meniscus, extending to the inferior articulating surface. Lateral meniscus: Minimal myxoid degeneration of the lateral meniscus. No visualized tear of the lateral meniscus which contacts an articulating surface. There is a small amount of fluid adjacent to the posterior horn of the lateral meniscus. Anterior cruciate ligament: There is separation of the bundles of the ACL, without a definitive tear. Posterior cruciate ligament: Unremarkable. No tear. Medial capsule and supporting structures: Unremarkable. No tear. Lateral capsule and supporting structures: Fluid surrounds the popliteus tendon. Increased signal intensity on PD is visualized within the proximal popliteus tendon, consistent with tendinosis or partial tear. Extensor mechanism of knee: Unremarkable. No tear. Soft tissues: See Bursae finding. IMPRESSION: 1. There is a small patellofemoral joint effusion. 2. Subtle medial meniscal tears. 3. Tendinosis or partial tear of the popliteus tendon. 4. Minimal prepatellar bursitis. Mild adjacent soft tissue edema is visualized. 5. Mild degenerative changes. 6. Additional findings described above.
--- NOTE | 2023-12-09 11:02 | EXP.PAIN.PRO ---
Procedure Date: 12/09/23 Time: 09:00 Anesthesiologist:: Fadi Aragon CRNA Complications:: None Pre-procedure Diagnosis:: Degenerative disc lumbar spine multilevels. Lumbar radiculopathy. Lumbar postlaminectomy syndrome. CRPS type I left lower limb. Post-procedure Diagnosis:: Same. Indications for Procedure:: Patient is a very pleasant 47-year-old male who comes our clinic today for intrathecal pain pump emptying for knee MRI. Procedure Details:: Details of the procedure were explained to the patient. The patient was taken procedure and placed in sitting position. They over the pumps cleansed using chlorhexidine as a cleansing solution. The pump was interrogated. The pump was accessed with ease using a 22-gauge inch and half needle. 16 mL of solution was withdrawn and labeled. Patient will return following knee MRI for refill. Patient returns from MRI. The area over the pump was cleaned using chlorhexidine as a cleansing solution. The pump was accessed with ease using a 22-gauge inch and half needle. 16 mL of solution containing Dilaudid 2 mg/mL was injected into the pump. No changes made in the pump rate. It will continue at 0.2772 mg/day. It was noted after pump fill on interrogation the patient's flow [place] pump was alerting us to low battery. I discussed with the patient regarding the need for intrathecal pain pump and catheter exchange. We will begin the paperwork to get him on the schedule and insurance approval. Plan and Disposition:: Patient was discharged without incident.
== END | disposition home or self-care (01) ==
PROVIDERS: PCP Family Medicine; Visit Provider Physician Assistant
DX: M51.16 Intervertebral disc disorders with radiculopathy, lumbar region (principal); M96.1 Postlaminectomy syndrome, not elsewhere classified; G90.522 Complex regional pain syndrome I of left lower limb; M25.561 Pain in right knee
CPT/HCPCS: 62370; 73721

== ENCOUNTER 2024-01-20 08:13 | Day surgery (SDC) | payer BC, SELFPAY ==
[2024-01-20 08:42] VITALS: BP 158/98; PULSE 69; RESP 16; TEMP 36.7; O2SAT 98; BMI 29.5
--- NOTE | 2024-01-20 08:52 | P.PCN_ITS ---
Procedure Date: 01/20/24 Time: 08:50 Anesthesiologist:: Danielle Yoo APRN Complications:: None Pre-procedure Diagnosis:: Degenerative disc disease of lumbar spine with lumbar radiculopathy symptoms Post-procedure Diagnosis:: Same Indications for Procedure:: Patient is a pleasant 48-year-old male who presents today for intrathecal refill and reprogram. Today he rates his pain a 1 or 2 out of 10. Patient denies any new trauma or injury. He does state that he is seeing orthopedics for torn meniscus bilaterally and that he has had 1 injection however it did not go well and had reactions. [facility] He does state that he is having a follow-up coming up soon. Patient is currently managed with Dilaudid 2 mg/mL with a daily dose of 0.2772 mg/day. He denies any side effects from this medication. He does state the dosage is working well and declines any additional adjustment. Patient is also scheduled to have his intrathecal pump replaced coming up due to end-of-life. Patient is currently managed with gabapentin 800 mg 4 times a day and tramadol 50 mg 4 times a day from our office. He denies any side effects from these medications. His Seth has been reviewed and is appropriate. Physical Exam: General: Alert and oriented x3, no acute distress, pleasant and cooperative Lungs: Respirations even and unlabored, symmetrical chest expansion Eyes: PERRL Musculoskeletal: Flexion and extension of lumbar [spine] somewhat guarded second sae to pain, [antalgic gait noted] Neurological: Speech clear, no gross sensory deficit Procedure Details:: Informed consent was obtained and the risk and benefits of the procedure were explained to the patient. The patient had noninvasive monitoring placed including noninvasive blood pressure cuff and pulse oximeter. Patient's pump was interrogated. The area over the pump was cleansed with chlorhexidine as a cleansing solution. In sterile fashion the pump was accessed with a 22-gauge needle. Approximately 8 mls of the pump solution was removed and discarded appropriately. The pump was then refilled with 20 mL's of Dilaudid 2 mg. The needle was withdrawn and a bandage was placed over the puncture site. The infusion rate was reprogrammed and Dilaudid 0.2772 mg/day. The patient tolerated well with no complication. Plan and Disposition:: Patient tolerated his intrathecal refill and reprogram with no complications and was discharged neurologically intact. Patient's next refill will be on or before April 16. I did review over with the patient the risk and benefits of intrathecal catheter and generator replacement. Patient will be scheduled for this procedure coming up. We will see him back 1 week postop. Patient agrees with this plan of care. We will see the patient back in the clinic at the next intrathecal refill. Patient has been instructed to contact the clinic with any concerns before the next appointment. Dr. Hyatt has reviewed this note and agrees with this plan of care. This note was dictated using voice recognition software and make contain errors or omissions. -- It Is medically necessary for this patient to continue to have their intrathecal pump refilled at regular intervals. This patient had an intrathecal pain pump implanted after meeting criteria of chronic intractable pain for greater than 3 months and failing conservative treatments. Patient has committed and been compliant to the treatment plan and all planned follow up care. Since implantation of the intrathecal pain pump, the patient has had decreased pain and been more functional. Oral medications have been reduced including intake of oral opioids. Patient continues to do well with intrathecal therapy with decrease in pain symptoms and increase in functional status. Stopping int rathecal medications can lead to life threatening withdrawal, seizures, cardiac arrest, severe pain, and possible . Pumps that are not refilled at regular intervals can be damages and cause and need for replacement. We continually titrate dose and concentration to optimize pain relief and function. We are limited in concentration for certain drugs to safely deliver medications through the pump and stay within the recommendations from the Polyanalgesic Consensus Committee Guidelines. Depending on dose and concentration these pumps may need to be refilled sooner than 3 months as we titrate.
[2024-01-20 08:56] VITALS: BP 162/104; PULSE 65; RESP 16; O2SAT 98
[2024-01-20 09:00] VITALS: BP 162/104; PULSE 65; RESP 16; O2SAT 98
[2024-01-20 09:17] VITALS: BP 128/53; PULSE 67; RESP 16; O2SAT 97
== END 2024-01-20 09:17 | disposition home or self-care (01) ==
PROVIDERS: PCP Family Medicine; Visit Provider Nurse Anesthetist, Certified Registered
DX: M51.16 Intervertebral disc disorders with radiculopathy, lumbar region (principal)
CPT/HCPCS: 62370

== ENCOUNTER 2024-02-13 09:57 | Outpatient (CLI) | payer BC, SELFPAY ==
[2024-02-13 10:18] VITALS: BMI 32.1
--- NOTE | 2024-02-13 10:20 | ECG_ITS ---
APPROVED REPORT Exam: Resting ECG HR:78 bpm ECG Measurements Heart Rate 78 AXES UT 204 P 50 QRSd 107 QRS -7 QT 364 T 7 QTc 398 Conclusion SINUS RHYTHM MINIMAL VOLTAGE CRITERIA FOR LVH, Borderline left axis deviation late R wave progression Isolated Q in III ABNORMAL ECG UNCONFIRMED REPORT Electronically signed by : Berny Gardner MD 02/14/2024 12:22:11
[2024-02-13 10:34] LABS: Basophils # 0.2 K/mm3 (0-0.2); Basophils % 1.9 % (0.1-2.0); Eosinophils # 0.9 K/mm3 (0.0-0.4); Eosinophils % 7.9 % (0.1-12.0); Hematocrit 45.7 % (42.0-52.0); Hemoglobin 16.1 g/dL (14.1-18.0); Lymphocytes # 2.8 K/mm3 (0.7-4.5); Lymphocytes % 24.7 % (10-50); Mean Corpuscular HGB Conc 35.2 g/dL (31.8-35.4); Mean Corpuscular Hemoglobin 31.1 pg (27.0-31.2); Mean Corpuscular Volume 88.4 fl (80-94); Mean Platelet Volume 11.1 fl (7.4-10.4); Monocytes # 1.1 K/mm3 (0.1-1.0); Monocytes % 9.6 % (1.7-9.3); Neutrophils # 6.3 K/mm3 (1.8-7.8); Neutrophils % 55.3 % (37.0-80.0); Platelet Count 234 K/mm3 (142-424); Red Blood Count 5.17 M/mm3 (4.60-6.20); Red Cell Distribution Width 12.8 % (11.5-17.5); White Blood Count 11.3 K/mm3 (4.8-10.8)
[2024-02-13 10:44] LABS: Chloride 95 mmol/L (98-107); Potassium 3.6 mmoL/L (3.5-5.1); Sodium 137 mmol/L (136-145)
[2024-02-13 10:47] LABS: Anion Gap 13.6 mEq/L (5-15); Blood Urea Nitrogen 9 mg/dl (9-20); Carbon Dioxide 32 mmol/L (22.0-30.0); Creatinine Clearance Estimated 157 mL/min (50-200); Estimated Glomerular Filt Rate 89 ml/min (>60); GFR (African American) 108 ML/MIN (>60)
[2024-02-13 10:48] LABS: Calcium 9.5 mg/dl (8.4-10.2); Glucose 146 mg/dl (74-100)
== END 2024-02-13 23:59 | disposition home or self-care (01) ==
LOC: PREOP 09:58
PROVIDERS: PCP Family Medicine; Visit Provider Anesthesiology
DX: Z01.810 Encounter for preprocedural cardiovascular examination (principal); R94.31 Abnormal electrocardiogram [ECG] [EKG]
CPT/HCPCS: 80048; 85025; 93005

== ENCOUNTER 2024-02-20 09:20 | Day surgery (SDC) | payer BC, SELFPAY ==
[2024-02-20 10:30] VITALS: BMI 32.1
[2024-02-20] MEDS: LACTATED RINGERS 1000ML 1,000 ML 25 ML IV (10:41)
[2024-02-20 10:44] VITALS: BP 128/91; PULSE 63; RESP 16; TEMP 36.3; O2SAT 96
[2024-02-20] MEDS: VANCOMYCIN HCL 2,000 MG in 0.9 % SODIUM CHLORIDE 250 ML 125 MG IV (12:23)
--- NOTE | 2024-02-20 13:40 | P.PNANES_ITS ---
[facility] Disclaimer: The information contained in this section may have been updated after the patient was seen, as this information can be updated by other users. 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 current occupational exposures/hazards: No caffeine: Yes [facility] Anesthesia Checklist Patient Identification Patient Identification: Arm Band and Verbal (Name & ) Structural Data Admitted From: Home Planned Operative Procedure/s: Pain pump placement Consent for Planned Operative Procedure(s) Verified: Yes Verified Documents: Surgical Consent and History and Physical NPO Status Verified Time NPO: 00:00 Additional verifications Anesthesia Reactions: No Hx Blood Transfusions: No Blood Transfusion Reaction: No Airway Assessment Mallampati Score:: Class II C-Spine Mobility Assessed: Yes TMJ Mobility Assessed: Yes Dentition: Good Dentition Neurological Assessment Level of Consciousness: Awake Hx Seizures: No Numbness or tingling in extremities: No Anesthesia Plan Anesthesia Risk discussed: Yes Anesthesia Plan: Verified ASA Class: II Anesthesia Type: MAC
[2024-02-20] MEDS: SODIUM CHLORIDE 0.9% 20ML VIAL 40 ML IV (14:00)
[2024-02-20] MEDS: GENTAMICIN 80 MG/2 ML VIAL (14:00)
[2024-02-20] MEDS: LIDOCAINE 2% W/EPI 1:100,000 20ML VIAL 40 ML (14:00)
[2024-02-20 14:33] VITALS: BP 144/108; PULSE 94; RESP 18; TEMP 36.7; O2SAT 97
[2024-02-20 14:47] VITALS: BP 153/97; PULSE 88; RESP 18; O2SAT 97
--- NOTE | 2024-02-20 14:49 | EXP.OP.NOTE ---
Date of procedure: 02/20/24 Pre-op Diagnosis:: Nonfunctioning intrathecal pain pump system for degenerative disease of lumbar spine with lumbar radiculopathy symptoms Post-op Diagnosis:: Same Procedure performed:: Replacement intrathecal pain pump system with new tunneled intrathecal catheter and pain pump generator replacement Surgeon:: Jaden Hyatt MD MANAGER CONSTRUCTION:: Aylin Cannon Anesthesia: MAC Estimated blood loss (mL): 5 Clinical Note:: This patient is a pleasant 48-year-old white male who we are treating for degenerative disease of lumbar spine with lumbar radiculopathy symptoms. He currently has a nonfunctioning intrathecal [employer]ix pain pump system. We will replace his pain pump system today with a new tunneled intrathecal catheter and pain pump generator replacement. We will fill his pump with intrathecal Dilaudid 2 mg/mL and start him at 0.277 mg/day. Operative findings:: None Operative note:: Informed consent was obtained risk and benefits of the procedure were explained to the patient. Patient was taken the operating room placed prone on the procedure table. He was prepped and draped in sterile fashion. C-arm fluoroscopy was used to view the lumbar spine. The skin and subcutaneous tissues overlying the pump generator were anesthetized using lidocaine. I made an incision dissected out the pain pump generator. I disconnected the catheter and tied off with 0 silk ties x 3. The skin and subcutaneous tissues adjacent to the L3-L4 interspace were anesthetized using lidocaine. I made incision dissected down to the lumbar paraspinous fascia. A 17-gauge spinal needle was inserted and advanced into the L3-L4 interspace until clear CSF was obtained. After this intrathecal catheter was inserted and advanced very easily to the T8 vertebral body. Catheter was in good location it was midline and posterior. The stylette of the catheter and the needle were withdrawn. The catheter was secured to the fascia with an anchoring device and 2-0 Prolene. I filled the pump with 20 mL of intrathecal Dilaudid 2 mg/mL. I tunneled catheter from the back to the pump pocket attached catheter to the pump. We are able to freely withdraw clear CSF through the sideport. The pump was then placed in the pocket with an antibiotic pouch. Both incisions were then closed with 2-0 Vicryl followed by 4-0 nylon and leticia. The patient tolerated the procedure well with no complications. Pump was interrogated and started at 0.277 mg/day. PTM boluses were adjusted to 0.027 mg up to 6 times a day with a 4-hour lockout Patient was discharged home neurologic intact with good relief of pain symptoms. Plan and disposition: Will follow-up with this patient in 1 week for wound check and reprogram. To follow-up in 2 weeks for suture and staple removal. Condition: stable Disposition: PACU Complications:: None
[2024-02-20 15:03] VITALS: BP 146/91; PULSE 88; RESP 18; O2SAT 96
== END 2024-02-20 15:03 | disposition home or self-care (01) ==
PROVIDERS: PCP Family Medicine; Visit Provider Anesthesiology
PROC: (CPT 62362; principal; 2024-02-20 12:35)
DX: M51.16 Intervertebral disc disorders with radiculopathy, lumbar region (principal); T85.695A Other mechanical complication of other nervous system device, implant or graft, initial encounter
CPT/HCPCS: 62362; 62350; 96374; C1755; C1772; J1580; J1920; J2250; J2704; J3370; J7120

== ENCOUNTER 2024-02-27 15:08 | Outpatient (POV) | payer BC, SELFPAY ==
--- NOTE | 2024-02-27 15:42 | A.OFFVIS_ITS ---
[facility] Disclaimer: The information contained in this section may have been updated after the patient was seen, as this information can be updated by other users. 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 current occupational exposures/hazards: No caffeine: Yes Have you lived/traveled outside US in past 30 days?: No Contact w/someone who lives/traveled outside US past 30 days?: No Exposure to someone with infectious disease in past 14 days?: No Do you have a fever (greater than 100.4 F or 38 C)?: No Have you tested positive for COVID-19: No Exposed to someone with COVID-19 in past 14 days?: No Do you have a sore throat?: No Do you have a cough?: No Do you have any weakness?: No Do you have any diarrhea?: No Are you experiencing any unusual bleeding?: No Do you have any muscle aches/pain?: No Do you have any abdominal pain?: No Are you experiencing loss of taste or smell?: No PM Subjective & Objective Subjective Subjective:: Patient is a pleasant 48-year-old male who presents today for 1 week postop of intrathecal pain pump and catheter replacement on 02/20/2024. Today he rates his pain a 1 out of 10. He does state that his pump is working well and denies any problems following this procedure. He is currently managed with Dilaudid 2 mg/mL with a daily dose of 0.2769 mg/day. He denies any side effects from this medication. 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 Patient is also managed with gabapentin 800 mg 4 times a day and tramadol 50 mg 4 times a day from our office for additional aches and pains outside of the pump area. His Seth has been reviewed and is appropriate. Review of Systems: General: No recent weight changes, no fever, no sleep disturbances Respiratory: No cough, no shortness of air, no recurring pulmonary infections Cardiovascular/peripheral vascular: No chest pain, no palpitations, no edema, no shortness of breath Gastrointestinal: No new onset incontinence, normal bowel movements reported Genitourinary: No new onset incontinence Musculoskeletal: Low back pain Psychiatric: [Normal mood/affect] Neurological: [Denies weakness in extremities], [denies balance issues] Pain at rest (0-10 scale): 1 Objective Objective:: Physical Exam: General: Alert and oriented x3, no acute distress, pleasant and cooperative Lungs: Respirations even and unlabored, symmetrical chest expansion Eyes: PERRL Musculoskeletal: Flexion and extension of lumbar [spine] somewhat guarded secondary to pain, [antalgic gait noted] Neurological: Speech clear, no gross sensory deficit Skin: Incision sites are clean, dry, well-approximated with no erythema noted, leticia and sutures intact Has patient had previous pain injection?: No Conservative treatment options previously tried: Home exercise plan Length of treatment: Longer than 12 weeks Meds Home Medications and Allergies Home Medications ?Medication ?Instructions ?Recorded ?Confirmed ?Type atenolol 50 mg tablet 50 mg PO BID High blood pressure 06/27/17 02/20/24 History mirtazapine 15 mg disintegrating 15 mg PO DAILY Supplement 01/13/19 02/20/24 History tablet tizanidine 4 mg tablet See Rx Instructions .Route 11/07/23 02/20/24 Rx .COMPLEX #90 tabs gabapentin 800 mg tablet 800 mg PO QID . #120 tabs 01/20/24 02/20/24 Rx (Neurontin) tramadol 50 mg tablet 50 mg PO QID . #120 tabs 01/20/24 02/20/24 Rx losartan 50 mg-hydrochlorothiazide 1 tab PO DAILY 02/13/24 02/20/24 History 12.5 mg tablet sulfamethoxazole 800 1 tab PO BID #14 tabs 02/20/24 Rx mg-trimethoprim 160 mg tablet (Bactrim DS) New Prescriptions to Start Prescriptions: Allergies Allergy/AdvReac Type Severity Reaction Status Date / Time Penicillins (PENICILLINS) Allergy Unknown I-RASH Verified 02/20/24 10:42 Assessment and Plan *Assessment and plan (1) Degenerative disc disease: Status: Acute Category: Medical Plan Patient will return to clinic in 2 weeks for reevaluation of symptoms and plan of care. He was counseled to continue his postop restrictions the full 6 weeks until his incisions are fully healed. We will supply a 2-week work excuse to his next appointment. Will also make sure that he does have refills on his tramadol and gabapentin. We will plan on the 2-week visit to remove the leticia and sutures and apply skin glue and Steri-Strips. We will see the patient back in the clinic at the next intrathecal refill. Patient has been instructed to contact the clinic with any concerns before the next appointment. Dr. Hyatt has reviewed this note and agrees with this plan of care. This note was dictated using voice recognition software and make contain errors or omissions. -- It Is medically necessary for this patient to continue to have their intrathecal pump refilled at regular intervals. This patient had an intrathecal pain pump implanted after meeting criteria of chronic intractable pain for greater than 3 months and failing conservative treatments. Patient has committed and been compliant to the treatment plan and all planned follow up care. Since implantation of the intrathecal pain pump, the patient has had decreased pain and been more functional. Oral medications have been reduced including intake of oral opioids. Patient continues to do well with intrathecal therapy with decrease in pain symptoms and increase in functional status. Stopping intrathecal medications can lead to life threatening withdrawal, seizures, cardiac arrest, severe pain, and possible . Pumps that are not refilled at regular intervals can be damages and cause and need for replacement. We continually titrate dose and concentration to optimize pain relief and function. We are limited in concentration for certain drugs to safely deliver medications through the pump and stay within the recommendations from the Polyanalgesic Consensus Committee Guidelines. Depending on dose and concentration these pumps may need to be refilled sooner than 3 months as we titrate. A UDS is needed to verify patient's compliance with our office pain contract. This is ordered based off specific treatments related to chronic pain with the potential to abuse certain medications.
[2024-02-27 15:51] VITALS: BP 169/98; PULSE 74; RESP 14; O2SAT 97; BMI 32.1
== END 2024-02-27 23:59 | disposition home or self-care (01) ==
PROVIDERS: PCP Family Medicine; Visit Provider Nurse Practitioner Family
DX: M51.16 Intervertebral disc disorders with radiculopathy, lumbar region (principal)
CPT/HCPCS: 99212; G0463

== ENCOUNTER 2024-03-12 15:04 | Outpatient (POV) | payer BC, SELFPAY ==
--- NOTE | 2024-03-12 15:49 | EXP.PAIN.SOA ---
[facility] Disclaimer: The information contained in this section may have been updated after the patient was seen, as this information can be updated by other users. 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 Today he rates his pain a 1 out of 10. He denies any new trauma or injury. He does state that his current dosage is working well and states that his pump is doing extremely well compared to the last 1. He is currently managed with Dilaudid 2 mg/mL with a daily dose of 0.2769 mg/day. Patient does also get gabapentin 800 mg 4 times a day and tramadol 50 mg 4 times a day for additional pains in other areas that the pump cannot reach. He denies any side effects from any of this medication. He states he is doing well. His Seth has been reviewed and is appropriate. Review of Systems: General: No recent weight changes, no fever, no sleep disturbances Respiratory: No cough, no shortness of air, no recurring pulmonary infections Cardiovascular/peripheral vascular: No chest pain, no palpitations, no edema, no shortness of breath Gastrointestinal: No new onset incontinence, normal bowel movements reported Genitourinary: No new onset incontinence Musculoskeletal: Low back pain Psychiatric: [Normal mood/affect] Neurological: [Denies weakness in extremities], [denies balance issues] Pain at rest (0-10 scale): 1 Objective Objective:: Physical Exam: General: Alert and oriented x3, no acute distress, pleasant and cooperative Lungs: Respirations even and unlabored, symmetrical chest expansion Eyes: PERRL Musculoskeletal: Flexion and extension of lumbar [spine] somewhat guarded secondary to pain, [antalgic gait noted] Neurological: Speech clear, no gross sensory deficit Skin: Incision sites are clean, dry, well-approximated with minimal erythema noted Has patient had previous pain injection?: No Conservative treatment options previously tried: Home exercise plan Length of treatment: Longer than 12 weeks Meds Home Medications and Allergies Home Medications ?Medication ?Instructions ?Recorded ?Confirmed ?Type atenolol 50 mg tablet 50 mg PO BID High blood pressure 06/27/17 02/27/24 History mirtazapine 15 mg disintegrating 15 mg PO DAILY Supplement 01/13/19 02/27/24 History tablet tizanidine 4 mg tablet See Rx Instructions .Route 11/07/23 02/27/24 Rx .COMPLEX #90 tabs gabapentin 800 mg tablet 800 mg PO QID . #120 tabs 01/20/24 02/27/24 Rx (Neurontin) tramadol 50 mg tablet 50 mg PO QID . #120 tabs 01/20/24 02/27/24 Rx losartan 50 mg-hydrochlorothiazide 1 tab PO DAILY 02/13/24 02/27/24 History 12.5 mg tablet sulfamethoxazole 800 1 tab PO BID #14 tabs 02/20/24 02/27/24 Rx mg-trimethoprim 160 mg tablet (Bactrim DS) New Prescriptions to Start Prescriptions: Allergies Allergy/AdvReac Type Severity Reaction Status Date / Time Penicillins (PENICILLINS) Allergy Unknown I-RASH Verified 02/20/24 10:42 Assessment and Plan *Assessment and plan (1) Degenerative disc disease: Status: Acute Category: Medical Plan Patient was able to almost all of his leticia removed at today's visit however did have the sutures all taken out in the midline incision were all removed. Patient was counseled he is still on postop restrictions until it is fully healed however he has been released to light duty for work. Patient will return to clinic in 1 week for reevaluation of symptoms and plan of care. We will see the patient back in the clinic at the next intrathecal refill. Patient has been instructed to contact the clinic with any concerns before the next appointment. Dr. Hyatt has reviewed this note and agrees with this plan of care. This note was dictated using voice recognition software and make contain errors or omissions. -- It Is medically necessary for this patient to continue to have their intrathecal pump refilled at regular intervals. This patient had an intrathecal pain pump implanted after meeting criteria of chronic intractable pain for greater than 3 months and failing conservative treatments. Patient has committed and been compliant to the treatment plan and all planned follow up care. Since implantation of the intrathecal pain pump, the patient has had decreased pain and been more functional. Oral medications have been reduced including intake of oral opioids. Patient continues to do well with intrathecal therapy with decrease in pain symptoms and increase in functional status. Stopping intrathecal medications can lead to life threatening withdrawal, seizures, cardiac arrest, severe pain, and possible . Pumps that are not refilled at regular intervals can be damages and cause and need for replacement. We continually titrate dose and concentration to optimize pain relief and function. We are limited in concentration for certain drugs to safely deliver medications through the pump and stay within the recommendations from the Polyanalgesic Consensus Committee Guidelines. Depending on dose and concentration these pumps may need to be refilled sooner than 3 months as we titrate. A UDS is needed to verify patient's compliance with our office pain contract. This is ordered based off specific treatments related to chronic pain with the potential to abuse certain medications.
[2024-03-12 16:00] VITALS: BP 139/82; PULSE 70; RESP 18; O2SAT 95; BMI 30.8
== END 2024-03-12 23:59 | disposition home or self-care (01) ==
LOC: SC.PAIN 15:05
PROVIDERS: PCP Family Medicine; Visit Provider Nurse Practitioner Family
DX: M51.16 Intervertebral disc disorders with radiculopathy, lumbar region (principal)
CPT/HCPCS: 99212; 99213; G0463

== ENCOUNTER 2024-03-18 08:33 | Outpatient (POV) | payer BC, SELFPAY ==
[2024-03-18 09:05] VITALS: BP 150/87; PULSE 64; RESP 18; O2SAT 97; BMI 30.8
--- NOTE | 2024-03-18 09:13 | A.OFFVIS_ITS ---
[facility] Disclaimer: The information contained in this section may have been updated after the patient was seen, as this information can be updated by other users. 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 current occupational exposures/hazards: No caffeine: Yes Have you lived/traveled outside US in past 30 days?: No Contact w/someone who lives/traveled outside US past 30 days?: No Exposure to someone with infectious disease in past 14 days?: No Do you have a fever (greater than 100.4 F or 38 C)?: No Have you tested positive for COVID-19: No Exposed to someone with COVID-19 in past 14 days?: No Do you have a sore throat?: No Do you have a cough?: No Do you have any weakness?: No Do you have any diarrhea?: No Are you experiencing any unusual bleeding?: No Do you have any muscle aches/pain?: No Do you have any abdominal pain?: No Are you experiencing loss of taste or smell?: No PM Subjective & Objective Subjective Subjective:: Patient is a pleasant 48-year-old male who presents today for staple removal from his intrathecal pain pump replacement. He rates his pain a 1 out of 10. He denies any new injury or trauma. He does state that he is doing remarkably well and denies any problems with his pump or the incisions. Patient is still off work from [employer]. Patient is currently managed with Dilaudid 2 mg/mL with a daily dose of 0.2769 mg/day. He also is prescribed gabapentin 800 mg 4 times a day and tramadol 50 mg 4 times a day. He denies any side effects. His Seth has been reviewed and is appropriate. Review of Systems: General: No recent weight changes, no fever, no sleep disturbances Respiratory: No cough, no shortness of air, no recurring pulmonary infections Cardiovascular/peripheral vascular: No chest pain, no palpitations, no edema, no shortness of breath Gastrointestinal: No new onset incontinence, normal bowel movements reported Genitourinary: No new onset incontinence Musculoskeletal: Low back pain Psychiatric: [Normal mood/affect] Neurological: [Denies weakness in extremities], [denies balance issues] Pain at rest (0-10 scale): 1 Objective Objective:: Physical Exam: General: Alert and oriented x3, no acute distress, pleasant and cooperative Lungs: Respirations even and unlabored, symmetrical chest expansion Eyes: PERRL Musculoskeletal: Flexion and extension of lumbar [spine] somewhat guarded secondary to pain, [antalgic gait noted] Neurological: Speech clear, no gross sensory deficit Has patient had previous pain injection?: No Conservative treatment options previously tried: Home exercise plan Length of treatment: Longer than 12 weeks Meds Home Medications and Allergies Home Medications ?Medication ?Instructions ?Recorded ?Confirmed ?Type atenolol 50 mg tablet 50 mg PO BID High blood pressure 06/27/17 03/12/24 History mirtazapine 15 mg disintegrating 15 mg PO DAILY Supplement 01/13/19 03/12/24 History tablet tizanidine 4 mg tablet See Rx Instructions .Route 11/07/23 03/12/24 Rx .COMPLEX #90 tabs losartan 50 mg-hydrochlorothiazide 1 tab PO DAILY 02/13/24 03/12/24 History 12.5 mg tablet gabapentin 800 mg tablet 800 mg PO QID . #120 tabs 03/18/24 Rx (Neurontin) tramadol 50 mg tablet 50 mg PO QID . #120 tabs 03/18/24 Rx New Prescriptions to Start Prescriptions: gabapentin [Neurontin] Danielle Yoo A tramadol Danielle Yoo A Allergies Allergy/AdvReac Type Severity Reaction Status Date / Time Penicillins (PENICILLINS) Allergy Unknown I-RASH Verified 02/20/24 10:42 Assessment and Plan *Assessment and plan (1) Degenerative disc disease: Status: Acute Category: Medical Plan We were able to remove all of his leticia at today's visit and apply skin glue and Steri-Strips. Patient was counseled that he will still remain on postop res trictions for about another 2 weeks. Patient does state that he will need a note to return to work at that time. I have requested that the patient call us to remind us regarding this. He agrees. I will send in 1 month supply of his tramadol and gabapentin to get him to his next intrathecal refill date in April. We will see the patient back in the clinic at the next intrathecal refill. Patient has been instructed to contact the clinic with any concerns before the next appointment. Dr. Hyatt has reviewed this note and agrees with this plan of care. This note was dictated using voice recognition software and make contain errors or omissions. -- It Is medically necessary for this patient to continue to have their intrathecal pump refilled at regular intervals. This patient had an intrathecal pain pump implanted after meeting criteria of chronic intractable pain for greater than 3 months and failing conservative treatments. Patient has committed and been compliant to the treatment plan and all planned follow up care. Since implantation of the intrathecal pain pump, the patient has had decreased pain and been more functional. Oral medications have been reduced including intake of oral opioids. Patient continues to do well with intrathecal therapy with decrease in pain symptoms and increase in functional status. Stopping intrathecal medications can lead to life threatening withdrawal, seizures, cardiac arrest, severe pain, and possible . Pumps that are not refilled at regular intervals can be damages and cause and need for replacement. We continually titrate dose and concentration to optimize pain relief and function. We are limited in concentration for certain drugs to safely deliver medications through the pump and stay within the recommendations from the Polyanalgesic Consensus Committee Guidelines. Depending on dose and concentration these pumps may need to be refilled sooner than 3 months as we titrate. A UDS is needed to verify patient's compliance with our office pain contract. This is ordered based off specific treatments related to chronic pain with the potential to abuse certain medications.
== END 2024-03-18 23:59 | disposition home or self-care (01) ==
PROVIDERS: PCP Family Medicine; Visit Provider Nurse Practitioner Family
DX: M51.369 Other intervertebral disc degeneration, lumbar region without mention of lumbar back pain or lower extremity pain (principal)
CPT/HCPCS: 99212; 99213; G0463

== ENCOUNTER 2024-05-07 08:34 | Day surgery (SDC) | payer BC, SELFPAY ==
[2024-05-07 08:45] VITALS: BP 151/92; PULSE 74; RESP 16; TEMP 37; O2SAT 100; BMI 32.1
--- NOTE | 2024-05-07 09:02 | P.PCN_ITS ---
Procedure Date: 05/07/24 Time: 09:31 Anesthesiologist:: Danielle Yoo APRN Complications:: None Pre-procedure Diagnosis:: Degenerative disc disease of lumbar spine with lumbar radiculopathy symptoms Post-procedure Diagnosis:: Same Indications for Procedure:: Patient is a pleasant 48-year-old male who presents today for intrathecal refill and reprogram. He rates his pain today a 0 out of 10. He states the new pump is working very well. He is currently managed with Dilaudid 2 mg/mL with a daily dose of 0.2769 mg/day. He denies any side effects.Patient is also managed with gabapentin 800 mg 4 times daily tizanidine 4 mg 3 times a day and tramadol 50 mg 4 times daily for pain outside of his overall back. He denies any side effects of this medication. He does need refills on his tizanidine he did get the gabapentin and tramadol yesterday. His Seth has been reviewed and is ap propriate. Physical Exam: General: Alert and oriented x3, no acute distress, pleasant and cooperative Lungs: Respirations even and unlabored, symmetrical chest expansion Eyes: PERRL Musculoskeletal: Flexion and extension of lumbar [spine] somewhat guarded secondary to pain, [antalgic gait noted] Neurological: Speech clear, no gross sensory deficit Procedure Details:: Informed consent was obtained and the risk and benefits of the procedure were explained to the patient. The patient had noninvasive monitoring placed including noninvasive blood pressure cuff and pulse oximeter. Patient's pump was interrogated. The area over the pump was cleansed with chlorhexidine as a cleansing solution. In sterile fashion the pump was accessed with a 22-gauge needle. Approximately 5 mls of the pump solution was removed and discarded appropriately. The pump was then refilled with 20 mL's of Dilaudid 2 mg.. The needle was withdrawn and a bandage was placed over the puncture site. The infusion rate was reprogrammed and continued at its current dosage. The patient tolerated well with no complication. Plan and Disposition:: Patient tolerated the procedure well with no complications and was discharged neurologically intact. Patient will be sent in a 3-month supply of his tizanidine. He was just sent in refills on the gabapentin and tramadol yesterday with a 3-month supply of these medications. Patient will return to clinic on or before their next intrathecal refill date. We will see the patient back in the clinic at the next intrathecal refill. Patient has been instructed to contact the clinic with any concerns before the next appointment. Dr. Hyatt has reviewed this note and agrees with this plan of care. This note was dictated using voice recognition software and make contain errors or omissions. -- It Is medically necessary for this patient to continue to have their intrathecal pump refilled at regular intervals. This patient had an intrathecal pain pump implanted after meeting criteria of chronic intractable pain for greater than 3 months and failing conservative treatments. Patient has committed and been compliant to the treatment plan and all planned follow up care. Since implantation of the intrathecal pain pump, the patient has had decreased pain and been more functional. Oral medications have been reduced including intake of oral opioids. Patient continues to do well with intrathecal therapy with decrease in pain symptoms and increase in functional status. Stopping intrathecal medications can lead to life threatening withdrawal, seizures, cardiac arrest, severe pain, and possible . Pumps that are not refilled at regular intervals can be damages and cause and need for replacement. We continually titrate dose and concentration to optimize pain relief and function. We are limited in concentration for certain drugs to safely deliver medications through the pump and stay within the recommendations from the Polyanalgesic Consensus Committee Guidelines. Depending on dose and concentration these pumps may need to be refilled sooner than 3 months as we titrate. A UDS is needed to verify patient's compliance with our office pain contract. This is ordered based off specific treatments related to chronic pain with the potential to abuse certain medications.
[2024-05-07 09:25] VITALS: BP 162/85; PULSE 71; RESP 18; O2SAT 97
[2024-05-07 09:27] VITALS: BP 162/85; PULSE 71; RESP 18; O2SAT 97
[2024-05-07 09:38] VITALS: BP 153/91; PULSE 71; RESP 16; O2SAT 99
== END 2024-05-07 09:40 | disposition home or self-care (01) ==
PROVIDERS: PCP Family Medicine; Visit Provider Nurse Practitioner Family
DX: M51.16 Intervertebral disc disorders with radiculopathy, lumbar region (principal)
CPT/HCPCS: 62370

== ENCOUNTER 2024-07-27 10:16 | Day surgery (SDC) | payer BC, SELFPAY ==
[2024-07-27 10:28] VITALS: BP 126/75; PULSE 76; RESP 18; TEMP 36.9; O2SAT 96; BMI 32.1
[2024-07-27 11:05] VITALS: BP 129/82; PULSE 73; RESP 16; TEMP 36.8; O2SAT 97
--- NOTE | 2024-07-27 11:05 | P.PCN_ITS ---
Procedure Date: 07/27/24 Time: 10:40 Anesthesiologist:: Fadi Aragon CRNA Complications:: None Pre-procedure Diagnosis:: Degenerative disc lumbar spine multilevels. Lumbar radiculopathy. Lumbar postlaminectomy syndrome. Post-procedure Diagnosis:: Same Indications for Procedure:: Patient is a very pleasant 48-year-old male who comes our clinic today for intrathecal pain pump interrogation and refill. He is currently being managed with Dilaudid 2 mg/mL at a daily dose of 0.2769 mg/day. He is doing very well with his current settings. He is not reporting side effects or complications. He is not requesting any changes. Patient is awake alert [place] x 3. In no acute distress. Flexion and extension of the lumbar spine somewhat guarded secondary to pain. Deep tendon reflexes upper lower extremities normal. Motor strength upper and lower extremities normal. There is no gross sensory deficit. Gait is normal. Procedure Details:: Details of the procedure explained to the patient. The patient was taken to the procedure room placed in the sitting position. The air over the pump was cleaned using chlorhexidine as a cleansing solution. The pump was interrogated. The pump was accessed with ease using a 22-gauge inch and a half needle. 5.5 mL of solution was withdrawn and discarded appropriately. The pump was then filled with 20 cc of Dilaudid 2 mg/mL. The rate continues at 0.2769 mg/day. Patient tolerated procedure without difficulty. There were no complications. Plan and Disposition:: Patient was discharged without incident.
[2024-07-27 11:21] VITALS: BP 128/72; PULSE 73; RESP 18; O2SAT 95
== END 2024-07-27 11:05 | disposition home or self-care (01) ==
LOC: SC.PAIN 10:18
PROVIDERS: PCP Family Medicine; Visit Provider Nurse Anesthetist, Certified Registered
DX: Z45.1 Encounter for adjustment and management of infusion pump (principal); M51.16 Intervertebral disc disorders with radiculopathy, lumbar region; M96.1 Postlaminectomy syndrome, not elsewhere classified; I10 Essential (primary) hypertension; Z88.0 Allergy status to penicillin; Z79.899 Other long term (current) drug therapy
CPT/HCPCS: 95991

== ENCOUNTER 2024-10-01 10:09 | Day surgery (SDC) | payer BC, SELFPAY ==
--- NOTE | 2024-10-01 10:13 | EXP.PM.HP ---
History of Present Illness *Admission Date: 10/01/24 *Reason for visit:: Intrathecal refill; DDD *History of present illness: Same [facility] Disclaimer: The information contained in this section may have been updated after the patient was seen, as this information can be updated by other users. 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 current occupational exposures/hazards: No caffeine: Yes Have you lived/traveled outside [place] in past 30 days?: No Contact w/someone who lives/traveled outside [place] past 30 days?: No Exposure to someone with infectious disease in past 14 days?: No Do you have a fever (greater than 100.4 F or 38 C)?: No Have you tested positive for COVID-19?: No Exposed to someone with COVID-19 in past 14 days?: No Do you have a sore throat?: No Do you have a cough?: No Do you have any weakness?: No Do you have any diarrhea?: No Are you experiencing any unusual bleeding?: No Do you have any muscle aches/pain?: No Do you have any abdominal pain?: No Are you experiencing loss of taste or smell?: No Other Medical History Have you received the Flu Vaccine for this season: No Have you received the Pneumonia Vaccine: No Meds Home Medications and Allergies Home Medications ?Medication ?Instructions ?Recorded ?Confirmed ?Type atenolol 50 mg tablet 50 mg PO BID High blood pressure 06/27/17 07/27/24 History mirtazapine 15 mg disintegrating 15 mg PO DAILY Supplement 01/13/19 07/27/24 History tablet losartan 50 mg-hydrochlorothiazide 1 tab PO DAILY 02/13/24 07/27/24 History 12.5 mg tablet clonidine HCl 0.1 mg tablet 0.1 mg PO BID 05/07/24 07/27/24 History losartan 100 1 tab PO DAILY 05/07/24 07/27/24 History mg-hydrochlorothiazide 25 mg tablet quetiapine 25 mg tablet 25 mg PO HS 05/07/24 07/27/24 History gabapentin 800 mg tablet 800 mg PO QID #120 tabs 08/09/24 Rx (Neurontin) tramadol 50 mg tablet 50 mg PO Q6H PRN pain #120 tabs 08/09/24 Rx tizanidine 4 mg tablet See Rx Instructions .Route 08/25/24 Rx .COMPLEX #90 tabs New Prescriptions to Start Prescriptions: Allergies Allergy/AdvReac Type Severity Reaction Status Date / Time Penicillins (PENICILLINS) Allergy Unknown I-RASH Verified 02/20/24 10:42 Exam *Routine HEENT Exam Head: Present normocephalic and atraumatic Eye: Present PERRL ENT: Present mucous membranes moist *Routine Neck Exam Neck: Present supple *Routine Respiratory Exam Respiratory: Present CTA bilaterally *Routine Cardiovascular Exam Cardiovascular: Present RRR *Routine Abdominal Exam Abdominal: Present soft *Routine Rectal Exam Rectal:: deferred *Routine Genitalia Exam Genitalia:: deferred Routine Back/Spine/Pelvis Exam Back/Spine: Present pain with flexion *Routine Skin Exam Skin: Present intact and warm *Routine Neurological Exam Neurological: Present alert and oriented X3
--- NOTE | 2024-10-01 10:16 | P.PCN_ITS ---
Procedure Date: 10/01/24 Time: 10:40 Anesthesiologist:: Danielle Yoo APRN Complications:: None Pre-procedure Diagnosis:: Degenerative disc disease of lumbar spine with lumbar radiculopathy symptoms, chronic pain syndrome Post-procedure Diagnosis:: Same Indications for Procedure:: Patient is a pleasant 48-year-old male who presents today for intrathecal refill and reprogram. Today he rates his pain a 1 out of 10. He denies any new falls or injuries. He does state that it really has been a 9-day difference from the new pump to his old pump. He states that this is working so much more effectively. He does state that he is not liking the PTC device as well. He states that the [employer] version is very finicky. Patient does also make mention today that he does need to make sure that his is off of his account that they are in the process of a divorce.he is currently managed with Dilaudid 2 mg/mL with a daily dose of 0.2769 mg/day. He denies any side effects. Patient is currently managed with gabapentin 800 mg 4 times a day and tramadol 50 mg 4 times a day. He denies any side effects. His Seth has been reviewed and is appropriate. Physical Exam: General: Alert and oriented x3, no acute distress, pleasant and cooperative Lungs: Respirations even and unlabored, symmetrical chest expansion Eyes: PERRL Musculoskeletal: Flexion and extension of lumbar [spine] somewhat guarded secondary to pain, [antalgic gait noted] Neurological: Speech clear, no gross sensory deficit Procedure Details:: Informed consent was obtained and the risk and benefits of the procedure were explained to the patient. The patient had noninvasive monitoring placed including noninvasive blood pressure cuff and pulse oximeter. Patient's pump was interrogated. The area over the pump was cleansed with chlorhexidine as a cleansing solution. In sterile fashion the pump was accessed with a 22-gauge needle. Approximately 9 mls of the pump solution was removed and discarded appropriately. The pump was then refilled with 20 mL's of Dilaudid 2 mg/mL. The needle was withdrawn and a bandage was placed over the puncture site. The infusion rate was reprogrammed and continued at its current dosage. The patient tolerated well with no complication. Plan and Disposition:: Patient tolerated the procedure well with no complications and was discharged neurologically intact. We did make sure to pass along to registration to take off his 's name off of his account as an emergency contact or accessible to his medical information. Patient acknowledges understanding. I will also send in a 3-month supply of his gabapentin and tramadol. Patient will return to clinic on or before their next intrathecal refill date. We will see the patient back in the clinic at the next intrathecal refill. Patient has been instructed to contact the clinic with any concerns before the next appointment. Dr. Hyatt has reviewed this note and agrees with this plan of care. This note was dictated using voice recognition software and make contain errors or omissions. -- It Is medically necessary for this patient to continue to have their intrathecal pump refilled at regular intervals. This patient had an intrathecal pain pump implanted after meeting criteria of chronic intractable pain for greater than 3 months and failing conservative treatments. Patient has committed and been compliant to the treatment plan and all planned follow up care. Since implantation of the intrathecal pain pump, the patient has had decreased pain and been more functional. Oral medications have been reduced including intake of oral opioids. Patient continues to do well with intrathecal therapy with decrease in pain symptoms and increase in functional status. Stopping intrathecal medications can lead to life threatening withdrawal, seizures, cardiac arrest, severe pain, and possible . Pumps that are not refilled at regular intervals can be damages and cause and need for replacement. We continu ally titrate dose and concentration to optimize pain relief and function. We are limited in concentration for certain drugs to safely deliver medications through the pump and stay within the recommendations from the Polyanalgesic Consensus Committee Guidelines. Depending on dose and concentration these pumps may need to be refilled sooner than 3 months as we titrate. A UDS is needed to verify patient's compliance with our office pain contract. This is ordered based off specific treatments related to chronic pain with the potential to abuse certain medications.
[2024-10-01 10:18] VITALS: BP 124/70; PULSE 69; RESP 18; O2SAT 98; BMI 32.1
[2024-10-01 10:37] VITALS: BP 124/70; PULSE 69; RESP 18; O2SAT 98
[2024-10-01 10:41] VITALS: BP 134/72; PULSE 62; RESP 18; O2SAT 98
== END 2024-10-01 10:41 | disposition home or self-care (01) ==
PROVIDERS: PCP Family Medicine; Visit Provider Nurse Practitioner Family
DX: Z45.1 Encounter for adjustment and management of infusion pump (principal); M51.16 Intervertebral disc disorders with radiculopathy, lumbar region; G89.4 Chronic pain syndrome; I10 Essential (primary) hypertension; Z87.891 Personal history of nicotine dependence; Z88.0 Allergy status to penicillin; Z79.899 Other long term (current) drug therapy
CPT/HCPCS: 62370